=== PATIENT | female | born 1960 | race Caucasian/White ===

== ENCOUNTER 2017-03-18 09:42 | Emergency (ER) | payer BC, MEDICARE ==
[2017-03-18 10:14] VITALS: BP 160/105
--- NOTE | 2017-03-18 11:47 | UC ---
helena Crane Timothy, scribed for Miladys Pagan DO on 03/18/17 at 1028 . Abdominal Pain Female HPI - HPI Summary HPI Summary: Nikki Hartman is a 56 yo female presenting to [facility] with diffuse 8/10 abd pain for the past 4 days with reflux, nausea, dry heaves. She also has Hx of lap band and lap band removal. Pt believes that this may be a recurrence of pancreatitis, which she has Hx of. She denies fever, cough, sore throat, eye discharge, CP, SOB, urinary Sx. Her MHx includes heart murmur, HTN, seizure, sleep apnea, CPAP, GERD, lap band, pancreatitis, fibroids, tubal ligation, hysterectomy, oophorectomy, DM II, chronic anemia, panic disorder, depression, anxiety, tobacco use. - History of Current Complaint Chief Complaint: UCAbdominalPain Stated Complaint: ABDOMINAL PAIN Time Seen by Provider: 03/18/17 10:24 Hx Obtained From: Patient Onset/Duration: Gradual Onset, Lasting Days, Still Present Timing: Constant Severity Initially: Moderate Severity Currently: Moderate Pain Intensity: 8 Pain Scale Used: 0-10 Numeric Location: Diffuse Radiates: No Character: Aching Associated Signs and Symptoms: Positive: Nausea, Vomiting, Other: - reflux. Negative: Fever, Cough, Chest Pain, Urinary Symptoms Allergies/Adverse Reactions: Allergies Allergy/AdvReac Type Severity Reaction Status Date / Time Gemfibrozil [From Lopid] Allergy Severe See Comment Verified 03/18/17 10:14 Latex Allergy RASH AND Verified 03/18/17 10:14 ITCHY FRGRANCES/CLEANING PRODUCTS Allergy Unknown Uncoded 03/18/17 10:14 Reaction Details PMH/Surg Hx/FS Hx/Imm Hx Endocrine History: Diabetes Cardiovascular History: Hypertension GI/ History: Gastroesophageal Reflux, Other Other GI/ History: lap band, pancreatitis Neurological History: Seizures Psychological History: Anxiety, Depression - Surgical History Surgical History: Yes Surgery Procedure, Year, and Place: LAP BAND INSERTION 2004 [facility] [place] REMOVAL 05/09 [facility] [place] LAP DERIC MANY YRS AGO. TUBAL [facility] [place] BILAT CATARACT [facility] [place] BILAT S+O 2013 [facility]. hernia - Family History Known Family History: Positive: Cardiac Disease, Hypertension, Diabetes, Other - CVA - Social History Alcohol Use: None Substance Use Type: None Smoking Status (MU): Former Smoker Type: Cigarettes Amount Used/How Often: 1/2 PPD Length of Time of Smoking/Using Tobacco: 10 YEARS Have You Smoked in the Last Year: Yes When Did the Patient Quit Smoking/Using Tobacco: 02/2014 Household Exposure Type: Cigarettes - Immunization History Most Recent Influenza Vaccination: Most Recent Tetanus Shot: 2010 Most Recent Pneumonia Vaccination: 2013 Review of Systems Constitutional: Negative Skin: Negative Eyes: Negative ENT: Negative Respiratory: Negative Cardiovascular: Negative Gastrointestinal: Abdominal Pain, Vomiting - dry heaves, Nausea Motor: Negative Neurovascular: Negative Musculoskeletal: Negative Neurological: Negative Psychological: Negative All Other Systems Reviewed And Are Negative: Yes Physical Exam Triage Information Reviewed: Yes Appearance: Well-Appearing, Pain Distress - mild-moderate, Obese Vital Signs: Initial Vital Signs Temp 98.3 F 03/18/17 10:05 Pulse 88 03/18/17 10:05 Resp 20 03/18/17 10:05 BP 160/105 03/18/17 10:05 Pulse Ox 99 03/18/17 10:05 Vital Signs Reviewed: Yes Eyes: Positive: Conjunctiva Clear. Negative: Discharge ENT Exam: Normal ENT: Positive: Hearing grossly normal. Negative: Muffled/hoarse voice Neck exam: Normal Neck: Positive: Supple Respiratory: Positive: Lungs clear, Normal breath sounds, No respiratory distress Cardiovascular: Positive: RRR Abdomen Description: Positive: Soft, Other: - ventral hernia. Negative: Nontender - tenderness diffuse.Exquisite tenderness to palpation at epigastric region. Bowel Sounds: Positive: Present Musculoskeletal: Positive: Strength Intact, ROM Intact Neurological: Positive: Alert, Muscle Tone Normal Psychological Exam: Normal Psychological: Positive: Age Appropriate Behavior Skin Exam: Normal Skin: Positive: Other - warm, dry, normal color. Negative: rashes Abd Pain Female Course/Dx - Course Course Of Treatment: Nikki Hartman is a 56 yo female presenting to [facility] with 8/10 diffuse abd pain with N/V concerned for pancreatitis which she has a Hx of. Pt medication list reviewed this visit. Pt BP noted at 160/105. After clinical examination, she will be transferred to [facility] for further evaluation, observation, and treatment. EMS offered for transport which Pt accepts. She will be transferred by ambulance as advised. - Differential Dx/Diagnosis Differential Diagnosis: Constipation, Gall Bladder Disease, Pancreatitis, Peptic Ulcer Disease, Other - gerd Provider Diagnoses: abd pain of unknown etiology, r/o pancreatitis - Physician Notification/Consults Discussed Care of Patient With: Yolanda De Leon - Discussed Pt condition, Pt will be seen in [facility] Time Discussed With Above Provider: 10:33 Discharge - Discharge Plan Condition: Stable Disposition: TRANS HIGHER LVL OF CARE FAC Discharge Disposition Comment: transfer to [facility] Referrals: Naveen Arana MD [Primary Care Provider] - The documentation as recorded by the helena landrum Timothy accurately reflects the service I personally performed and the decisions made by , Miladys Pagan DO.
== END 2017-03-18 11:00 | disposition short-term general hospital (02) ==
LOC: UCEAST 09:42
DX: R10.9 Unspecified abdominal pain (principal); R01.1 Cardiac murmur, unspecified; I10 Essential (primary) hypertension; R56.9 Unspecified convulsions; G47.33 Obstructive sleep apnea (adult) (pediatric); Z99.81 Dependence on supplemental oxygen; K21.9 Gastro-esophageal reflux disease without esophagitis; Z98.84 Bariatric surgery status; E11.9 Type 2 diabetes mellitus without complications; D50.0 Iron deficiency anemia secondary to blood loss (chronic); F41.0 Panic disorder [episodic paroxysmal anxiety]; F32.9 Major depressive disorder, single episode, unspecified; F17.210 Nicotine dependence, cigarettes, uncomplicated; Z91.040 Latex allergy status; Z91.048 Other nonmedicinal substance allergy status
CPT/HCPCS: 99213; G0463

== ENCOUNTER 2017-03-18 11:31 | Emergency (ER) | payer BC, MEDICARE ==
[2017-03-18 12:09] LABS: Hematocrit 36 % (35-47); Hemoglobin 12.2 g/dl (12.0-16.0); Mean Corpuscular HGB Conc 34 g/dl (31-36); Mean Corpuscular Hemoglobin 27 pg (27-31); Mean Corpuscular Volume 82 fL (80-97); Mean Platelet Volume 7 um3 (7.4-10.4); Red Blood Count 4.44 10^6/ul (4.0-5.4); Red Cell Distribution Width 14 % (10.5-15); White Blood Count 7.5 10^3/ul (3.5-10.8)
[2017-03-18 12:25] LABS: Urine Bilirubin Negative (Negative); Urine Glucose Negative (Negative); Urine Nitrite Negative (Negative)
[2017-03-18 12:36] LABS: Albumin 3.9 g/dL (3.2-5.2); BUN/Creatinine Ratio 14.7 (8-20); C Reactive Protein 15.41 mg/L (< 5.00); Calcium 8.9 mg/dL (8.6-10.3); EGFR African American 102.4 (>60); EGFR Non-African American 79.6 (>60); Globulin 2.8 g/dL (2-4); Potassium 3.5 mmol/L (3.5-5.0); Total Bilirubin 0.3 mg/dL (0.2-1.0); Total Protein 6.7 g/dL (6.4-8.9)
[2017-03-18] MEDS ORDERED: Ondansetron INJ* 2 MG/ML VIAL IV ONE (13:00)
[2017-03-18] MEDS ORDERED: Morphine INJ* 10 MG/ML 1 ML SYRINGE IV ONE (13:00)
[2017-03-18] MEDS ORDERED: NS 0.9% 1000 ML* 1,000 ML IV ONE (13:04)
[2017-03-18 13:17] LABS: Venous Bicarbonate HCO3 22.5 mmol/L (24-28)
[2017-03-18] MEDS ORDERED: Iodixanol* (CONTRAST) 320 MG/ML 100 ML SDV IV ONE (14:16)
--- NOTE | 2017-03-18 15:13 | RAD ---
Indication: Left upper quadrant pain, vomiting. Contrast: Administered 130.0 ml of VISAPAQUE 320 mgi/ml CT of the abdomen and pelvis was performed after oral and IV contrast administration. Coronal and sagittal reconstructed images were obtained. The lung bases demonstrate no pleural fluid, nodules or masses. Heart is of normal size without evidence of pericardial effusion. Liver is normal in size. It is diffusely decreased in density consistent with hepatic steatosis. Area of focal fatty sparing is noted in the medial segment of left lobe. The patient status post cholecystectomy. Common duct is prominent likely due to postcholecystectomy state. Pancreas demonstrates no mass or pancreatic duct dilatation. The spleen is normal in size. No adrenal lesions are noted. The kidneys demonstrate symmetric nephrograms without focal lesions. No retroperitoneal lymphadenopathy is noted. No dilated loops of bowel are noted. The urinary bladder is unremarkable. CT of the pelvis demonstrates diverticulosis without definite evidence of diverticulitis. No abnormally dilated loops of bowel are noted. The appendix is visualized and is normal. There is a small periumbilical hernia just above the umbilicus with a defect in the right rectus muscle containing omentum. No free fluid is identified. IMPRESSION: RIGHT-SIDED PERIUMBILICAL HERNIA CONTAINING OMENTUM WITHOUT EVIDENCE OF STRANGULATION OR EDEMA. HEPATIC STEATOSIS IS NOTED. PATIENT IS STATUS POST CHOLECYSTECTOMY.
[2017-03-18 17:29] LABS: BUN/Creatinine Ratio 14.7 (8-20); Blood Urea Nitrogen 10 mg/dL (6-24); CO2 Carbon Dioxide 25 mmol/L (22-32); Calcium 8.6 mg/dL (8.6-10.3); Chloride 89 mmol/L (101-111); EGFR African American 114.7 (>60); EGFR Non-African American 89.2 (>60); Glucose 165 mg/dL (70-100); Sodium 125 mmol/L (133-145)
[2017-03-18 17:32] LABS: Anion Gap 11 mmol/L (2-11)
[2017-03-18 19:33] VITALS: BP 140/70
--- NOTE | 2017-03-19 10:04 | ED ---
Cynthia Crane Auryana, scribed for Polo Ramírez MD on 03/18/17 at 1211 . Abdominal Pain/Male - HPI Summary HPI Summary: 56 year old female presents with abdominal pain starting 4 days ago. The pain is located in the left sided abdomen. Patient reports she also has nausea, and HAYES but denies any fever, chills, diaphoresis, vomiting, diarrhea, melena or any blood in the stool. She reports multiple prior episodes. - 6x. Patient reports that she had a lap band removed and since then has gained weight over the last year. PMHx is significant for lap band surgery, cholecystitis, DM, HTN, and chronic pancreatitis. She denies any pain medications. She denies any alcohol use. - History of Current Complaint Chief Complaint: EDAbdPain Stated Complaint: ABD PAIN Time Seen by Provider: 03/18/17 11:34 Hx Obtained From: Patient Onset/Duration: Gradual Onset, Lasting Days - 4, Still Present Timing: Constant Severity Initially: Mild Severity Currently: Mild Location: Other - left sided abd pain Associated Signs And Symptoms: Positive: Nausea, Other - HAYES Similar Episode/Dx As:: YES SEE HPI - Allergies/Home Medications Allergies/Adverse Reactions: Allergies Allergy/AdvReac Type Severity Reaction Status Date / Time Gemfibrozil [From Lopid] Allergy Severe See Comment Verified 03/18/17 10:14 Latex Allergy RASH AND Verified 03/18/17 10:14 ITCHY FRGRANCES/CLEANING PRODUCTS Allergy Unknown Uncoded 03/18/17 10:14 Reaction Details Home Medications: Home Medications Fluticasone NASAL SPRAY 50MCG* [Flonase NASAL SPRAY 50MCG*] 2 spray BOTH NARES DAILY 03/18/17 [History Confirmed 03/18/17] Furosemide TAB* [Lasix TAB*] 20 mg PO DAILY 03/18/17 [History Confirmed 03/18/17 ] Furosemide TAB* [Lasix TAB*] 40 mg PO DAILY 03/18/17 [History Confirmed 03/18/17 ] Losartan TAB* [Cozaar TAB*] 100 mg PO DAILY 03/18/17 [History Confirmed 03/18/17 ] Metoprolol Tartrate TAB* [Lopressor TAB*] 50 mg PO BID 03/18/17 [History Confirmed 03/18/17] Omeprazole CAP* [Prilosec CAP* 20 MG] 20 mg PO DAILY 03/18/17 [History Confirmed 03/18/17] amLODIPine TAB* [Norvasc 5 mg TAB*] 10 mg PO DAILY 03/18/17 [History Confirmed 03/18/17] PMH/Surg Hx/FS Hx/Imm Hx Endocrine/Hematology History: Reports: Hx Diabetes - TYPE II- DIET CONTROLLED, Hx Anemia - CHRONIC Cardiovascular History: Reports: Hx Hypertension - FAIRLY WELL CONTROLLED Denies: Hx Pacemaker/ICD Respiratory History: Reports: Hx Sleep Apnea - CPAP Denies: Hx Asthma GI History: Reports: Hx Gastroesophageal Reflux Disease History: Denies: Hx Renal Disease Musculoskeletal History: Reports: Hx Bursitis - LEFT SHOULDER Sensory History: Reports: Hx Cataracts - surgery, Hx Contacts or Glasses, Hx Glaucoma Denies: Hx Hearing Aid Opthamlomology History: Reports: Hx Cataracts - surgery, Hx Contacts or Glasses , Hx Glaucoma Neurological History: Reports: Hx Headaches, Hx Seizures - 8 months ago Psychiatric History: Reports: Hx Anxiety, Hx Depression, Hx Panic Disorder - VERY ANXIOUS - Cancer History Hx Chemotherapy: No Hx Radiation Therapy: No - Surgical History Surgery Procedure, Year, and Place: [place] [facility] [place] [facility] [place] DERIC MANY YRS AGO. [place] [facility] [place]IL[place] [facility] [place] BILAT S+O 2013 [place]. hernia Hx Anesthesia Reactions: No Infectious Disease History: Denies: Traveled Outside the [place] in Last 30 Days - Family History Known Family History: Positive: Other - CVA - Social History Alcohol Use: None Hx Substance Use: No Substance Use Type: Reports: None Hx Tobacco Use: Yes Smoking Status (MU): Former Smoker Type: Cigarettes Amount Used/How Often: 1/2 PPD Length of Time of Smoking/Using Tobacco: 10 YEARS Have You Smoked in the Last Year: Yes Review of Systems Constitutional: Negative Negative: Fever, Chills Eyes: Negative Negative: Erythema ENT: Negative Negative: Sore Throat Cardiovascular: Negative Negative: Chest Pain Respiratory: Negative Negative: Shortness Of Breath, Cough Positive: Abdominal Pain, Nausea. Negative: Vomiting Genitourinary: Negative Negative: dysuria, hematuria Musculoskeletal: Negative Negative: Myalgia, Edema Skin: Negative Negative: Rash Neurological: Other - no dizziness Positive: Headache Psychological: Normal All Other Systems Reviewed And Are Negative: Yes Physical Exam - Summary Physical Exam Summary: Constitutional: Well-developed, Well-nourished, Alert. (-) Distressed Skin: Warm, Dry HENT: Normocephalic; Atraumatic Eyes: Conjunctiva normal Neck: Musculoskeletal ROM normal neck. (-) JVD, (-) Stridor, (-) Tracheal deviation Cardio: Rhythm regular, rate normal, Heart sounds normal; Intact distal pulses; The pedal pulses are 2+ and symmetric. Radial pulses are 2+ and symmetric. (-) Murmur Pulmonary/Chest wall: Effort normal. (-) Respiratory distress, (-) Wheezes, (-) Rales Abd: Soft, (+) LUQ and epigastric tenderness, (-) Distension, (-) Guarding, (-) Rebound Musculoskeletal: (-) Edema Lymph: (-) Cervical adenopathy Neuro: Alert, Oriented x3 Psych: Mood and affect Normal Triage Information Reviewed: Yes Vital Signs Reviewed: Yes Diagnostics - Laboratory Result Diagrams: 03/18/17 11:43 03/18/17 18:15 Lab Statement: Any lab studies that have been ordered have been reviewed, and results considered in the medical decision making process. - CT ABD/PEL CT Interpretation: Positive (See Comments) - IMPRESSION: RIGHT-SIDED PERIUMBILICAL HERNIA CONTAINING OMENTUM WITHOUT EVIDENCE OF STRANGULATION OR EDEMA. HEPATIC STEATOSIS IS NOTED. PATIENT IS STATUS POST CHOLECYSTECTOMY. CT Interpretation Completed By: Radiologist - EKG 12:10 EKG Interpretation: SINUS RHYTHM @ 86 BPM, no STEMI. Re-Evaluation - Re-Evaluation First Eval Re-Evaluation Time: 19:22 - patient feels better and wishes to go home Change: Improved Abdominal Pain Fem Course/Dx - Course Assessment/Plan: 56 year old female presents with abdominal pain starting 4 days ago. The pain is located in the left sided abdomen. Patient reports she also has nausea, and HAYES but denies any fever, chills, diaphoresis, vomiting, diarrhea, melena or any blood in the stool. She reports multiple prior episodes. - 6x. Patient reports that she had a lap band removed and since then has gained weight over the last year. PMHx is significant for lap band surgery, cholecystitis, DM, HTN, and chronic pancreatitis. She denies any pain medications. She denies any alcohol use. Test results show sodium #1 123, sodium #2 125, chloride 87, anion gap #1 12, anion gap #2 11, glucose #1 216, glucose #2 165, lactic acid #1 4.2, lactic acid #2 2.9 , Alk. Phos. 114, troponin 0.00, CRP 15.41, and lipase 27. Blood gas shows pCO2 37, pO2 23, HCO3 22.5, O2 SAT 42.8, and base excess -1.6. UA is negative for U.T.I. CT ABD / PEL IMPRESSION: RIGHT-SIDED PERIUMBILICAL HERNIA CONTAINING OMENTUM WITHOUT EVIDENCE OF. STRANGULATION OR EDEMA. HEPATIC STEATOSIS IS NOTED. PATIENT IS STATUS POST CHOLECYSTECTOMY. Ekg- SINUS RHYTHM @ 86 BPM, no STEMI. I discussed the case with Dr. Romeo because her sodium levels have improved and should have trial with decreased H2O intake. Patient discharge home with F/U to PCP and recommendation to decrease fluid intake to 4x 8 oz. glasses of water a day. Patient is agreeable with plan. DDx: pancreatitis related to DM, Hyponatremia related to polydipsia v.s. diuretics. Dx: polydipsia, and hyponatremia. - Diagnoses Differential Diagnosis/HQI/PQRI: Other - pancreatitis related to DM, Hyponatremia related to polydipsia v.s. diuretics Provider Diagnoses: Polydipsia, Hyponatremia - Provider Notifications Discussed Care Of Patient With: Hollis Lyman Time Discussed With Above Provider: 17:00 - recommends repeat BMP, and lactic acid Discharge - Discharge Plan Condition: Stable Disposition: HOME Patient Education Materials: Hyponatremia (ED) Referrals: Naveen Arana MD [Primary Care Provider] - 2 Days Additional Instructions: Decrease fluid intake to 4x 8 oz. glasses of water a day RETURN TO THE EMERGENCY DEPARTMENT FOR CHANGING OR WORSENING SYMPTOMS The documentation as recorded by the Cynthia landrum Auryana accurately reflects the service I personally performed and the decisions made by , Polo Ramírez MD.
== END 2017-03-18 19:33 | disposition home or self-care (01) ==
LOC: ED 11:31
DX: R63.1 Polydipsia (principal); E87.1 Hypo-osmolality and hyponatremia; R51 Headache
CPT/HCPCS: 36415; 74177; 80048; 80053; 81003; 82803; 83605; 83690; 84484; 85025; 86140; 93005; 96374; 96375; 99285; J2270; J2405; Q9967

== ENCOUNTER 2017-06-17 02:53 | Observation (INO) | payer BC, MEDICARE ==
[2017-06-17] MEDS ORDERED: Aspirin Low Dose CHEW TAB* 81 MG PO ONE (02:59)
[2017-06-17] MEDS ORDERED: Nitroglycerin 2% OINT* 1 GM PAK TOPICAL ONE (02:59)
[2017-06-17 03:26] LABS: Add Diff/Slide Review? Slide Review Added; Comments Flag Yes; Hematocrit 37 % (35-47); Hemoglobin 12.3 g/dl (12.0-16.0); Mean Corpuscular HGB Conc 33 g/dl (31-36); Mean Corpuscular Hemoglobin 27 pg (27-31); Mean Corpuscular Volume 81 fL (80-97); Mean Platelet Volume 7 um3 (7.4-10.4); Red Blood Count 4.51 10^6/ul (4.0-5.4); Red Cell Distribution Width 15 % (10.5-15); White Blood Count 7.4 10^3/ul (3.5-10.8)
[2017-06-17 03:41] LABS: Albumin 4.1 g/dL (3.2-5.2); BUN/Creatinine Ratio 14.3 (8-20); Calcium 9.4 mg/dL (8.6-10.3); EGFR African American 89.9 (>60); EGFR Non-African American 69.9 (>60); Globulin 2.8 g/dL (2-4); Potassium 3.7 mmol/L (3.5-5.0); Total Bilirubin 0.3 mg/dL (0.2-1.0); Total Protein 6.9 g/dL (6.4-8.9)
[2017-06-17 03:44] LABS: Troponin I 0.07 ng/mL (<0.04)
[2017-06-17] MEDS ORDERED: Heparin DRIP 25,000 UNITS(*) 25,000 UNITS/500 ML BAG IV ONE (03:54)
[2017-06-17] MEDS ORDERED: Heparin VIAL(*) 5000 UNITS/ML VIAL (FIVE THOUSAND) IV SCH (04:00)
[2017-06-17] MEDS ORDERED: Heparin DRIP 25,000 UNITS(*) 25,000 UNITS/500 ML BAG IVPB SCH (04:00)
[2017-06-17] MEDS ORDERED: Al Hydrox/Mg Hydrox/Simet LIQ* 30 ML UDC PO PRN (04:03)
[2017-06-17] MEDS ORDERED: Ondansetron INJ* 2 MG/ML VIAL IV PRN (04:03)
[2017-06-17] MEDS ORDERED: Acetaminophen TAB* 325 MG PO PRN (04:03)
[2017-06-17] MEDS ORDERED: Heparin VIAL(*) 5000 UNITS/ML VIAL (FIVE THOUSAND) ONE (04:07)
[2017-06-17] MEDS ORDERED: Albuterol HFA INHALER* 8 gm MDI INH PRN (05:15)
--- NOTE | 2017-06-17 06:35 | ED ---
Megan Crane Rebecca, scribed for Vitor Christianuel on 06/17/17 at 0315 . HPI Chest Pain - HPI Summary HPI Summary: Pt is a 56 y/o F BIBA who presents to ED c/o CP. Pain began 1 week ago and has been intermittent since onset, present at night. 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 Pain is midsternal with radiation into the jaw and LUE. Pain is currently mild, ranked 2/10 and characterized as soreness. Given 324 mg ASA while en route to [facility] ED. Sx aggravated by nothing, alleviated by sitting up, unchanged by deep breaths and movements. C/o nausea and dizziness. FHx CAD. Body Worker is Dr. Mcleod who last did a stress test about 2-3 months ago. - History of Current Complaint Chief Complaint: EDChestPainROMI Time Seen by Provider: 06/17/17 02:54 Hx Obtained From: Patient Onset/Duration: Started Weeks Ago - 1 week, Still Present Timing: Intermittent Current Severity: Mild Pain Intensity: 2 Pain Scale Used: 0-10 Numeric Chest Pain Location: Mid Sternal Chest Pain Radiates: Yes Chest Pain Radiates To:: Arm - LUE, Jaw Character: Other: - Soreness Aggravating Factor(s): Nothing Alleviating Factor(s): Other: - Sitting up Associated Signs and Symptoms: Positive: Dizziness, Nausea - Additional Pertinent History Primary Care Physician: [id number] - Allergy/Home Medications Allergies/Adverse Reactions: Allergies Allergy/AdvReac Type Severity Reaction Status Date / Time Gemfibrozil [From Lopid] Allergy Severe See Comment Verified 03/18/17 10:14 Latex Allergy RASH AND Verified 03/18/17 10:14 ITCHY FRGRANCES/CLEANING PRODUCTS Allergy Unknown Uncoded 03/18/17 10:14 Reaction Details PMH/Surg Hx/FS Hx/Imm Hx Endocrine/Hematology History: Reports: Hx Diabetes - TYPE II- DIET CONTROLLED, Hx Anemia - CHRONIC Cardiovascular History: Reports: Hx Hypertension - FAIRLY WELL CONTROLLED Denies: Hx Pacemaker/ICD Respiratory History: Reports: Hx Sleep Apnea - CPAP Denies: Hx Asthma GI History: Reports: Hx Gastroesophageal Reflux Disease History: Denies: Hx Renal Disease Musculoskeletal History: Reports: Hx Bursitis - LEFT SHOULDER Sensory History: Reports: Hx Cataracts - surgery, Hx Contacts or Glasses, Hx Glaucoma Denies: Hx Hearing Aid Opthamlomology History: Reports: Hx Cataracts - surgery, Hx Contacts or Glasses , Hx Glaucoma Neurological History: Reports: Hx Headaches, Hx Seizures - 8 months ago Psychiatric History: Reports: Hx Anxiety, Hx Depression, Hx Panic Disorder - VERY ANXIOUS - Cancer History Hx Chemotherapy: No Hx Radiation Therapy: No - Surgical History Surgery Procedure, Year, and Place: LAP BAND INSERTION 2004 [facility]. BAND REMOVAL 05/09 [facility]. LAP DERIC MANY YRS AGO. TUBAL [facility]. BILAT CATARACT [facility]. BILAT S+O 2013 [facility]. hernia Hx Anesthesia Reactions: No Infectious Disease History: No Infectious Disease History: Denies: Traveled Outside the [place] in Last 30 Days - Family History Known Family History: Positive: Cardiac Disease, Hypertension, Diabetes, Other - CVA - Social History Alcohol Use: Occasionally Hx Substance Use: No Substance Use Type: Reports: None Hx Tobacco Use: Yes Smoking Status (MU): Former Smoker Type: Cigarettes Amount Used/How Often: 1/2 PPD Length of Time of Smoking/Using Tobacco: 10 YEARS Have You Smoked in the Last Year: Yes Review of Systems Positive: Chest Pain Positive: Nausea Neurological: Other - Dizziness All Other Systems Reviewed And Are Negative: Yes Physical Exam - Summary Physical Exam Summary: Appearance: Well appearing, no pain distress Skin: warm, dry, reflects adequate perfusion Head/face: normal Eyes: EOMI, ZACH ENT: normal Neck: supple, nontender Respiratory: CTA, breath sounds present Cardiovascular: tachycardic, pulses symmetrical Abdomen: nontender, soft Bowel: present Musculoskeletal: normal, strength/ROM intact Neuro: normal, sensory motor intact, A&Ox3 Triage Information Reviewed: Yes Vital Signs On Initial Exam: Initial Vitals Temp Pulse Resp BP Pulse Ox 98.1 F 103 20 162/87 98 06/17/17 02:55 06/17/17 02:55 06/17/17 02:55 06/17/17 02:55 06/17/17 02:55 Vital Signs Reviewed: Yes - [place] Coma Scale Coma Scale Total: 15 Diagnostics - Vital Signs Vital Signs Temp Pulse Resp BP Pulse Ox 06/17/17 02:55 98.1 F 103 20 162/87 98 - Laboratory Lab Results: Lab Results 06/17/17 06/17/17 06/17/17 Range/Units 03:15 03:15 03:15 WBC 7.4 (3.5-10.8) 10^3/ul RBC 4.51 (4.0-5.4) 10^6/ul Hgb 12.3 (12.0-16.0) g/dl Hct 37 (35-47) % MCV 81 (80-97) fL MCH 27 (27-31) pg MCHC 33 (31-36) g/dl RDW 15 (10.5-15) % Plt Count 360 (150-450) 10^3/ul MPV 7 L (7.4-10.4) um3 Neut % (Auto) 51.8 (38-83) % Lymph % (Auto) 35.1 (25-47) % Garrett % (Auto) 8.9 (1-9) % Eos % (Auto) 3.5 (0-6) % Baso % (Auto) 0.7 (0-2) % Absolute Neuts (auto) 3.8 (1.5-7.7) 10^3/ul Absolute Lymphs (auto) 2.6 (1.0-4.8) 10^3/ul Absolute Monos (auto) 0.7 (0-0.8) 10^3/ul Absolute Eos (auto) 0.3 (0-0.6) 10^3/ul Absolute Basos (auto) 0 (0-0.2) 10^3/ul Absolute Nucleated RBC 0.01 10^3/ul Nucleated RBC % 0.1 INR (Anticoag Therapy) 0.85 L (0.89-1.11) APTT 28.4 (26.0-36.3) seconds D-Dimer, Quantitative < 200 (Less Than 230) ng/mL Sodium (133-145) mmol/L Potassium (3.5-5.0) mmol/L Chloride (101-111) mmol/L Carbon Dioxide (22-32) mmol/L Anion Gap (2-11) mmol/L BUN (6-24) mg/dL Creatinine (0.51-0.95) mg/dL Est GFR ( Amer) (>60) Est GFR (Non-Af Amer) (>60) BUN/Creatinine Ratio (8-20) Glucose (70-100) mg/dL Lactic Acid (0.5-2.0) mmol/L Calcium (8.6-10.3) mg/dL Total Bilirubin (0.2-1.0) mg/dL AST (13-39) U/L ALT (7-52) U/L Alkaline Phosphatase (34-104) U/L Troponin I (<0.04) ng/mL B-Natriuretic Peptide 23 ( - 100) pg/mL Total Protein (6.4-8.9) g/dL Albumin (3.2-5.2) g/dL Globulin (2-4) g/dL Albumin/Globulin Ratio (1-3) 06/17/17 06/17/17 Range/Units 03:15 03:15 WBC (3.5-10.8) 10^3/ul RBC (4.0-5.4) 10^6/ul Hgb (12.0-16.0) g/dl Hct (35-47) % MCV (80-97) fL MCH (27-31) pg MCHC (31-36) g/dl RDW (10.5-15) % Plt Count (150-450) 10^3/ul MPV (7.4-10.4) um3 Neut % (Auto) (38-83) % Lymph % (Auto) (25-47) % Garrett % (Auto) (1-9) % Eos % (Auto) (0-6) % Baso % (Auto) (0-2) % Absolute Neuts (auto) (1.5-7.7) 10^3/ul Absolute Lymphs (auto) (1.0-4.8) 10^3/ul Absolute Monos (auto) (0-0.8) 10^3/ul Absolute Eos (auto) (0-0.6) 10^3/ul Absolute Basos (auto) (0-0.2) 10^3/ul Absolute Nucleated RBC 10^3/ul Nucleated RBC % INR (Anticoag Therapy) (0.89-1.11) APTT (26.0-36.3) seconds D-Dimer, Quantitative (Less Than 230) ng/mL Sodium 129 L (133-145) mmol/L Potassium 3.7 (3.5-5.0) mmol/L Chloride 92 L (101-111) mmol/L Carbon Dioxide 23 (22-32) mmol/L Anion Gap 14 H (2-11) mmol/L BUN 12 (6-24) mg/dL Creatinine 0.84 (0.51-0.95) mg/dL Est GFR ( Amer) 89.9 (>60) Est GFR (Non-Af Amer) 69.9 (>60) BUN/Creatinine Ratio 14.3 (8-20) Glucose 246 H (70-100) mg/dL Lactic Acid 4.2 H* (0.5-2.0) mmol/L Calcium 9.4 (8.6-10.3) mg/dL Total Bilirubin 0.30 (0.2-1.0) mg/dL AST 34 (13-39) U/L ALT 36 (7-52) U/L Alkaline Phosphatase 93 (34-104) U/L Troponin I 0.07 H* (<0.04) ng/mL B-Natriuretic Peptide ( - 100) pg/mL Total Protein 6.9 (6.4-8.9) g/dL Albumin 4.1 (3.2-5.2) g/dL Globulin 2.8 (2-4) g/dL Albumin/Globulin Ratio 1.5 (1-3) Result Diagrams: 06/17/17 03:15 06/17/17 03:15 Lab Statement: Any lab studies that have been ordered have been reviewed, and results considered in the medical decision making process. - Radiology CXR Xray Interpretation: No Acute Changes Radiology Interpretation Completed By: ED Physician - EKG 0304 Cardiac Rate: Tachycardia - 102 bpm EKG Rhythm: Sinus Tachycardia EKG Interpretation: No acute changes Re-Evaluation - Re-Evaluation First Eval Re-Evaluation Time: 03:59 Comment: Agreed with admission. Discussed results with the pt. Chest Pain Course/Dx - Course Assessment/Plan: Pt is a 56 y/o F BIBA who presents to ED c/o CP. Pain began 1 week ago and has been intermittent since onset, present at night. 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 Pain is midsternal with radiation into the jaw and LUE. Pain is currently mild, ranked 2/10 and characterized as soreness. Sx alleviated by sitting up, unchanged by deep breaths and movements. C/o nausea and dizziness. FHx CAD. Body Worker is Dr. Mcleod who last did a stress test about 2-3 months ago. CXR reveals no acute findings. EKG is sinus tachycardia with no acute changes. Lactic acid of 4.2, troponin of 0.07. Discussed care of pt with Dr. Beltrán who accepts pt for admission. Pt will be admitted with Dx of CP r/o OK and hyponatremia. She understands and agrees. Allergies noted. Elevated BP noted. - Chest Pain Differential Diagnosis/HQI/PQRI: Acute OK, ACS, CHF, Chest Wall, Lower Respiratory Infection, Pulmonary Edema - Diagnoses Provider Diagnoses: Chest pain, rule out acute myocardial infarction, Hyponatremia, ACS (acute coronary syndrome) - Provider Notifications Discussed Care Of Patient With: Jeremie Beltrán Time Discussed With Above Provider: 03:49 Instructed by Provider To: Other - Accepts pt for admission. Discharge - Discharge Plan Condition: Stable Disposition: ADMITTED TO [facility] The documentation as recorded by the Megan landrum Rebecca accurately reflects the service I personally performed and the decisions made by , José Christian.
--- NOTE | 2017-06-17 08:03 | RAD ---
INDICATION: Chest pain COMPARISON: Most recent comparison chest x-ray August 23, 2016 TECHNIQUE: Single AP portable view of the chest was obtained. FINDINGS: Image quality is compromised due to the relative inferiority of a portable chest x-ray. The heart and mediastinum exhibit normal size and contour. The lungs are grossly clear. There is no evidence of a large pleural effusion. Visualized bones are normal for the patient's age. IMPRESSION: No radiographic evidence for acute cardiopulmonary abnormality on this portable chest x-ray.
[2017-06-17] MEDS: Morphine INJ* 2 MG/ML 1 ML SYRINGE (TWO MG - NEW SYRINGE VERSION) IV PRN (08:58)
[2017-06-17] MEDS ORDERED: Furosemide TAB* 40 MG PO SCH (09:00)
[2017-06-17 09:01] LABS: C Reactive Protein 11.32 mg/L (< 5.00)
[2017-06-17] MEDS ORDERED: Dextrose 50% Syringe 50 ML* 25 GM/50 ML SYRINGE IV PUSH PRN (09:20)
[2017-06-17] MEDS ORDERED: NS 0.9% 1000 ML* 1,000 ML IV SCH ×2 (09:30→23:30)
[2017-06-17] MEDS: Metoprolol Tartrate TAB* 50 mg PO SCH ×2 (10:00→23:15)
[2017-06-17] MEDS: Losartan TAB* 25 MG PO SCH (10:01)
[2017-06-17] MEDS: clonazePAM TAB(*) 1 MG PO SCH ×2 (10:01→23:14)
[2017-06-17] MEDS: Aspirin EC Low Dose* 81 MG TAB.EC PO SCH (10:03)
[2017-06-17] MEDS: BuPROPion XL* 300 MG TAB.XL PO SCH (10:03)
[2017-06-17] MEDS: amLODIPine TAB* 5 MG PO SCH (10:03)
[2017-06-17] MEDS: Ezetimibe TAB* 10 MG PO SCH (10:03)
[2017-06-17] MEDS: buPROPion SR TAB.SR* 100 MG PO SCH (10:03)
[2017-06-17] MEDS: Omeprazole CAP* 20 MG PO SCH (10:04)
[2017-06-17] MEDS: Fluticasone NASAL SPRAY 50MCG* 16 gm SPRAY BTL BOTH NARES SCH (10:08)
[2017-06-17] MEDS: Nitroglycerin 2% OINT* 1 GM PAK TOPICAL SCH ×3 (10:10→18:21)
[2017-06-17 10:25] LABS: Erythrocyte Sed Rate 17 mm/Hr (0-30)
--- NOTE | 2017-06-17 11:51 | ECHO ---
Patient: MARIFER MACK [facility] Rec#: [id number] : 1960 Date: 06/17/2017 Age: 56y Height: 157.48 cm / 62.0 in Weight: 96.62 kg / 213.0 lbs Sex: F BSA: 1.96 Room#: [facility] Admit Date#: 06/17/2017 Type: Inpatient Referring: Jeremie Beltrán MD Reading: Kenn Mcleod MD Grain Combiner: Irma Moncada KATELIN CC: Naveen Arana MD Transthoracic Echocardiogram Indication: CP BP: 176/92 HR: 106 Rhythm: Tachycardia Findings History: CAD,HTN,AGNES with CPAP,GERD,anxiety-depression,former smoker. Technical Comments: The study is technically limited due to patient body habitus. The study is technically limited due to the patient's smoking history. 3ml Definity used to enhance borders. Left Ventricle: The left ventricular chamber size is decreased. Mild concentric left ventricular hypertrophy is observed. Global left ventricular wall motion and contractility are within normal limits. There is normal left ventricular systolic function. The estimated ejection fraction is 55-60%. Abnormal left ventricular diastolic function is observed. Left Atrium: The left atrial chamber size is normal. Right Ventricle: The right ventricular cavity size is normal. The right ventricular global systolic function is normal. Right Atrium: The right atrial cavity size is normal. Aortic Valve: The aortic valve leaflets are mildly thickened. Systolic excursion of the aortic valve cusps is reduced. There is no evidence of aortic regurgitation. There is mild aortic stenosis. The mean gradient of the aortic valve is 14.67 mmHg. Max velocity 2.9 m/sec The highest aortic valve velocity was obtained with the standard probe from the A5C view. Mitral Valve: The mitral valve leaflets appear normal. There is mild mitral regurgitation. There is no evidence of mitral stenosis. Tricuspid Valve: The tricuspid valve leaflets are normal. There is no evidence of tricuspid valve regurgitation. Unable to estimate the right ventricular systolic pressure. There is no tricuspid stenosis. Pulmonic Valve: The pulmonic valve appears normal. There is no evidence of pulmonic regurgitation. There is no pulmonic stenosis. Pericardium: A pericardial fat pad is visualized. Aorta: There is no dilatation of the ascending aorta. There is no dilatation of the aortic arch. There is no dilation of the aortic root. Pulmonary Artery: The main pulmonary artery appears normal. Venous: The venous system is not well visualized. Contrast: Definity was used to optimize study. Intravenous contrast was used to enhance endocardial border definition. A total of 3ml used. Summary: There are no significant changes when compared to the previous study done on 02/12/16 Conclusions Mild concentric left ventricular hypertrophy is observed. Global left ventricular wall motion and contractility are within normal limits. There is normal left ventricular systolic function. The estimated ejection fraction is 55-60%. The right ventricular global systolic function is normal. Systolic excursion of the aortic valve cusps is reduced. There is mild aortic stenosis. The mean gradient of the aortic valve is 14.67 mmHg. Max velocity 2.9 m/sec There is mild mitral regurgitation. There is no evidence of tricuspid valve regurgitation. Unable to estimate the right ventricular systolic pressure. Measurements Name Value Normal Range RVIDd (AP) 2D 2.5 cm (0.9 - 2.6) RVDdMajor (2D) 3.2 cm (2.2 - 4.4) RAd ISD 4CH 5 cm (3.4 - 4.9) RA (A4C)W 3 cm (2.9 - 4.6) IVSd (2D) 1.2 cm (0.6 - 1) LVPWd (2D) 1.3 cm (0.6 - 1) LVIDd (2D) 2.9 cm (3.6 - 5.4) LVIDs (2D) 2.5 cm - LV FS (2D) 27 % (25 - 45) Aortic Annulus 1.7 cm (1.4 - 2.6) Ao root diameter (2D) 2.4 cm (2.1 - 3.5) Ascending Ao 2.9 cm (2.1 - 3.4) Aortic arch 2.1 cm (1.8 - 3.4) Descending Ao 1.2 cm - LA dimension (AP) 2D 3.5 cm (2.3 - 3.8) LAd ISD 4CH 5.5 cm (2.9 - 5.3) LA ISD 4CH W 3.6 cm (2.5 - 4.5) Name Value Normal Range LA ESV SP 4CH (A/L) 40 ml - LA ESV SP 2CH (A/L) 38 ml - LA ESV BP (A/L) 41 ml - LA ESV BP (A/L) index 20.83 ml/m2 - LA ESV SP 4CH (MOD) 37 ml - LA ESV SP 2CH (MOD) 36 ml - Name Value Normal Range MV E-wave Vmax 0.7 m/sec - MV deceleration time 108 msec - MV A-wave Vmax 1.2 m/sec - MV E:A ratio 0.56 ratio - LV septal e' Vmax 0.12 m/sec - LV lateral e' Vmax 0.07 m/sec - LV E:e' septal ratio 5.83 ratio - LV E:e' lateral ratio 10 ratio - Name Value Normal Range AV Vmax 2.9 m/sec - AV VTI 45.5 cm - AV peak gradient 34.29 mmHg - AV mean gradient 14.67 mmHg - LVOT diameter 1.8 cm - LVOT Vmax 1.4 m/sec - LVOT VTI 28.2 cm - LVOT peak gradient 7.42 mmHg - LVOT mean gradient 4.26 mmHg - NELA (continuity Vmax) 1.2 cm2 - NELA (continuity VTI) 1.6 cm2 - Name Value Normal Range PV Vmax 1.1 m/sec - PV peak gradient 4.94 mmHg -
[2017-06-17] MEDS: Insulin LISPRO* 1 UNITS UNIT SUBCUT SCH ×2 (11:52→17:55)
--- NOTE | 2017-06-17 12:33 | HP ---
CC: Dr. Naveen Arana. HISTORY AND PHYSICAL: DATE OF ADMISSION: 06/17/17. TIME OF EVALUATION: 5 a.m. PRIMARY CARE PROVIDER: Dr. Naveen Arana. CHIEF COMPLAINT: Ongoing chest pain and shortness of breath. HISTORY OF PRESENT ILLNESS: Ms. Hartman is a pleasant 56-year-old female, brought in by ambulance, complaining of chest pain that has been ongoing for 1 week. It is intermittent and present mainly at night. The patient's symptoms have become more constant. She states the discomfort is midsternal with radiation into her extremities bilaterally as well as into her jaw bilaterally. The pain is often mild but then becomes more intense. She states that she has a sore throat. The patient has been given aspirin en route to the emergency room. Subsequently, the patient has been started on heparin. The patient's initial troponin was 0.07 (indeterminate). By report, Ms. Hartman Lj had a low risk/normal stress test in March 2017 in the outpatient setting by Dr. Kenn Mcleod. The patient was never diagnosed personally with coronary disease though she has hypertension and diabetes. She has obstructive sleep apnea and uses a CPAP nightly. The past night, she has had a difficult time tolerating it secondary to upper sinus congestion. PAST MEDICAL HISTORY: 1. Diabetes - recently started on metformin. 2. Recent weight gain, currently almost 250 pounds. 3. Hypertension. 4. Obstructive sleep apnea - on CPAP. 5. History of mechanical fall on ice with head trauma and subdural hematoma. 6. GERD - on PPI. 7. History of left shoulder bursitis. 8. Cataract surgery. 9. Glaucoma. 10. Anxiety/depression/panic disorder. PAST SURGICAL HISTORY: Includes: 1. Lap band insertion in 2004 with removal in 2013. 2. Laparoscopic cholecystectomy. 3. Tubal ligation. 4. Bilateral cataracts. 5. Bilateral salpingo-oophorectomy 2013. 6. Hernia surgery. FAMILY HISTORY: Cardiac disease, hypertension, diabetes and stroke. 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 She is currently on disability. She is a former smoker, currently not smoking. She used to smoke half a pack a day. She did this for approximately 10 years and quit in the past year. REVIEW OF SYSTEMS: Review of 14 systems was accomplished at the bedside. This was largely negative except for many pertinent positives as mentioned above in the HPI and past medical history. PHYSICAL EXAMINATION ON ADMISSION: GENERAL APPEARANCE: Anxious appearing, middle aged woman who appears her stated age, no apparent distress at this time although she does appear anxious. VITAL SIGNS: Temperature 97.4 degrees Fahrenheit, heart rate 104 to 116 and consistently in that range. Normal sinus rhythm. Blood pressure 140s to 170s/ 60s to 80s variably, oxygen saturation 99% on room air. HEENT: Oropharynx is clear. Mucous membranes are moist. No posterior pharyngeal erythema or exudate. NECK: Obese. Land verdin are obscured. I do not appreciate any bruits or lymphadenopathy. I could not appreciate thyroid secondary to habitus. CHEST: Clear breath sounds anteriorly and posteriorly. No wheezing appreciated. HEART: Regular rate and rhythm appreciated. Her anterior sternum is quite tender at the right costochondral intersection of her sternum and ribs. She does not have any pain on deep inspiration. ABDOMEN: Soft, nontender. Bowel sounds are present. No flank tenderness. EXTREMITIES: Without clubbing, cyanosis or significant edema, though she does have 1+ edema bilaterally. No Homans' sign. NEURO: Nonfocal exam with normal sensory, motor and reflex components. PSYCH: Normal affect. No acute anxiety or depression, although she does seem worried about her symptoms as she reviews them. ADMISSION DATA: White blood cell count 7.4 with a normal differential, hemoglobin 12.3, platelets 360. INR 0.85 (marginally low). D-dimer negative. Blood chemistries with multiple abnormalities including a sodium of 129 ( chronically hyponatremic with previous values in the low 120 on presentation in February). Anion gap is 14 with a low chloride of 92 and BUN and creatinine of 12 and 0.84 respectively. Glucose elevated to 246. Her lactic acid initially was 4.2. Initial troponin at 0315 hours is 0.07. BNP 23. Albumin 4.1, total protein 6.9. Initial Radiology includes a chest x-ray that showed no active disease in the pulmonary parenchyma or any other evidence of intrathoracic disease. EKG, normal sinus rhythm. No evidence of active ischemia. IMPRESSION: Ms. Hartman is a 56-year-old female with obesity, hypertension, diabetes, who presents with ongoing chest pain that is becoming more concerning. Reassuring data includes a stress test in March that was rated low risk, although I do not have access to that test directly as it was done in the outpatient setting. Moreover, the patient has reproducible anterior sternal pain that would be more consistent with costochondritis or possibly pericarditis. PLAN BY MEDICAL PROBLEM: Reproducible anterior chest pain with recumbent position, worse at night/lying flat. - I will start with a transthoracic echocardiogram and see if there is any pleural effusion. - The patient denies any history of trauma to her anterior chest nor any history of heavy lifting to imply a muscle sprain. - The pain is localized over the right aspect of her sternum. I think this is the etiology of her pain and I think she is having further more anxiety with that. She does have a history of GERD. There is potentially a component of that given her symptoms in the recumbent position. The patient will have repeat troponin as the initial one was 0.07 (indeterminate) although that might be artifactual or even a lab error. Of some concern is the fact that the patient does have obstructive sleep apnea. She has gained significant weight. She has got fairly obese neck and I could imagine perhaps a right-sided chest pressure at night leading to a troponin leak of some sort. - Her BNP, reassuringly, is only 23. I am going to repeat her troponin and EKG at a 4-hour interval - between 6 and 7 a.m. on 06/17/2017. - We discussed the possibility that uncontrolled asthma could lead to chest discomfort, but she is not experiencing any wheezing and she has got good air movement on physical exam, so that is much less likely Continue other outpatient medications. She is on 2 meds for her blood pressure including losartan and metoprolol and these will be continued in the inpatient setting. She is on furosemide and that will also be continued. I also noted she is on amlodipine for a total of 3 medications for her hypertension. Patient is a full code and will continue in that status. Cardiac diet: As patient tolerates - hold caffeine for possible cardiac testing if necessary. TIME SPENT: Total time taken to admit Ms. Hartman was 75 minutes, greater than half the time was spent going over the history and physical examination, formulating the differential diagnosis as stated above. [id number]/[facility] #: [id number] [facility]ITALRod
[2017-06-17] MEDS ORDERED: diPHENhydraMINE PO* 25 MG PO ONE (15:16)
[2017-06-17] MEDS ORDERED: Diazepam TAB(*) 5 MG PO ONE (15:16)
[2017-06-17] MEDS ORDERED: Enoxaparin(*) 100 MG/ML SYR SUBCUT ONE (15:36)
--- NOTE | 2017-06-17 15:56 | PN ---
Subjective Date of Service: 06/17/17 Interval History: pt c/o CP-squeezing in the chest radiating to left arm and jaw, better to resolving when sitting up, much worse when laying down. Not pleuritic Objective Active Medications: Acetaminophen (Tylenol Tab*) 650 mg PO Q4H PRN PRN Reason: FEVER/PAIN Al Hydrox/Mg Hydrox/Simethicone (Maalox Plus*) 30 ml PO Q6H PRN PRN Reason: INDIGESTION Albuterol (Ventolin Hfa Inhaler*) 1 - 2 puff INH Q4H PRN PRN Reason: WHEEZING Amlodipine Besylate (Norvasc Tab*) 5 mg PO DAILY [facility] Last Admin: 06/17/17 10:03 Dose: Not Given Aspirin (Aspirin Ec Low Dose*) 81 mg PO DAILY [facility] Last Admin: 06/17/17 10:03 Dose: Not Given Bupropion HCl (Wellbutrin Sr Tab*) 100 mg PO DAILY [facility] Last Admin: 06/17/17 10:03 Dose: Not Given Bupropion HCl (Bupropion Xl*) 300 mg PO DAILY [facility] Last Admin: 06/17/17 10:03 Dose: Not Given Cetirizine HCl (Zyrtec*) 10 mg PO QPM [facility] Clonazepam (Klonopin Tab(*)) 1 mg PO BID [facility] Last Admin: 06/17/17 10:01 Dose: Not Given Dextrose (D50w Syringe 50 Ml*) 12.5 gm IV PUSH .FOR FS < 60 - SS PRN PRN Reason: FS < 60 Ezetimibe (Zetia Tab*) 10 mg PO DAILY WITH MEAL [facility] Last Admin: 06/17/17 10:03 Dose: Not Given Fluticasone Propionate (Flonase Nasal [place] 50mcg*) 2 spray BOTH NARES DAILY [facility] Last Admin: 06/17/17 10:08 Dose: 2 spray Sodium Chloride (Ns 0.9% 1000 Ml*) 1,000 mls @ 75 mls/hr IV PER RATE [facility] Insulin Human Lispro (Humalog*) 0 units SUBCUT Q6HR [facility] PRN Reason: Protocol Last Admin: 06/17/17 11:52 Dose: 1 unit Latanoprost (Xalatan 0.005%*) 1 drop BOTH EYES QPM [facility] Losartan Potassium (Cozaar Tab*) 100 mg PO DAILY [facility] Last Admin: 06/17/17 10:01 Dose: 100 mg Metoprolol Tartrate (Lopressor Tab*) 50 mg PO BID [facility] Last Admin: 06/17/17 10:00 Dose: 50 mg Morphine Sulfate (Morphine Inj (Syringe)*) 2 mg IV Q4H PRN PRN Reason: PAIN Last Admin: 06/17/17 08:58 Dose: 2 mg Nitroglycerin (Nitroglycerin 2% Oint*) 1 inch TOPICAL 0800,1400 [facility] PRN Reason: Protocol Last Admin: 06/17/17 14:55 Dose: Not Given Omeprazole (Prilosec Cap*) 20 mg PO DAILY [facility] Last Admin: 06/17/17 10:04 Dose: Not Given Ondansetron HCl (Zofran Inj*) 4 mg IV Q4H PRN PRN Reason: NAUSEA/VOMITING Vital Signs 06/17/17 06/17/17 06/17/17 04:30 04:31 04:44 Temperature 97.4 F 98 F Pulse Rate 120 Respiratory 22 20 Rate Blood Pressure 144/65 176/92 (mmHg) O2 Sat by Pulse 99 Oximetry 06/17/17 06/17/17 06/17/17 07:12 08:58 09:58 Temperature 97.7 F Pulse Rate 107 Respiratory 18 20 18 Rate Blood Pressure 115/102 (mmHg) O2 Sat by Pulse 98 Oximetry 06/17/17 06/17/17 11:01 15:21 Temperature 98.0 F 97.5 F Pulse Rate 90 85 Respiratory 18 16 Rate Blood Pressure 147/75 146/69 (mmHg) O2 Sat by Pulse 96 99 Oximetry Oxygen Devices in Use Now: None Appearance: 56 yo obese f in nAD, aAOx3 Eyes: No Scleral Icterus, PERRLA Ears/Nose/Mouth/Throat: NL Teeth, Lips, Gums, Mucous Membranes Moist Neck: NL Appearance and Movements; NL JVP, Trachea Midline Respiratory: Symmetrical Chest Expansion and Respiratory Effort, Clear to Auscultation Cardiovascular: NL Sounds; No Murmurs; No JVD, RRR Abdominal: NL Sounds; No Tenderness; No Distention, No Hepatosplenomegaly Lymphatic: No Cervical Adenopathy, No Axillary Adenopathy Extremities: No Edema, No Clubbing, Cyanosis Skin: No Rash or Ulcers, No Nodules or Sclerosis Neurological: Alert and Oriented x 3, NL Muscle Strength and Tone Result Diagrams: 06/17/17 03:15 06/17/17 03:15 Additional Lab and Data: Lab Results 06/17/17 06/17/17 06/17/17 Range/Units 03:15 03:15 03:15 WBC 7.4 (3.5-10.8) 10^3/ul RBC 4.51 (4.0-5.4) 10^6/ul Hgb 12.3 (12.0-16.0) g/dl Hct 37 (35-47) % MCV 81 (80-97) fL MCH 27 (27-31) pg MCHC 33 (31-36) g/dl RDW 15 (10.5-15) % Plt Count 360 (150-450) 10^3/ul MPV 7 L (7.4-10.4) um3 Neut % (Auto) 51.8 (38-83) % Lymph % (Auto) 35.1 (25-47) % [place] % (Auto) 8.9 (1-9) % Eos % (Auto) 3.5 (0-6) % Baso % (Auto) 0.7 (0-2) % Absolute Neuts (auto) 3.8 (1.5-7.7) 10^3/ul Absolute Lymphs (auto) 2.6 (1.0-4.8) 10^3/ul Absolute Monos (auto) 0.7 (0-0.8) 10^3/ul Absolute Eos (auto) 0.3 (0-0.6) 10^3/ul Absolute Basos (auto) 0 (0-0.2) 10^3/ul Absolute Nucleated RBC 0.01 10^3/ul Nucleated RBC % 0.1 INR (Anticoag Therapy) 0.85 L (0.89-1.11) APTT 28.4 (26.0-36.3) seconds D-Dimer, Quantitative < 200 (Less Than 230) ng/mL Sodium (133-145) mmol/L Potassium (3.5-5.0) mmol/L Chloride (101-111) mmol/L Carbon Dioxide (22-32) mmol/L Anion Gap (2-11) mmol/L BUN (6-24) mg/dL Creatinine (0.51-0.95) mg/dL Est GFR ( Amer) (>60) Est GFR (Non-Af Amer) (>60) BUN/Creatinine Ratio (8-20) Glucose (70-100) mg/dL Lactic Acid (0.5-2.0) mmol/L Calcium (8.6-10.3) mg/dL Total Bilirubin (0.2-1.0) mg/dL AST (13-39) U/L ALT (7-52) U/L Alkaline Phosphatase (34-104) U/L Troponin I (<0.04) ng/mL B-Natriuretic Peptide 23 ( - 100) pg/mL Total Protein (6.4-8.9) g/dL Albumin (3.2-5.2) g/dL Globulin (2-4) g/dL Albumin/Globulin Ratio (1-3) 06/17/17 06/17/17 Range/Units 03:15 03:15 WBC (3.5-10.8) 10^3/ul RBC (4.0-5.4) 10^6/ul Hgb (12.0-16.0) g/dl Hct (35-47) % MCV (80-97) fL MCH (27-31) pg MCHC (31-36) g/dl RDW (10.5-15) % Plt Count (150-450) 10^3/ul MPV (7.4-10.4) um3 Neut % (Auto) (38-83) % Lymph % (Auto) (25-47) % [place] % (Auto) (1-9) % Eos % (Auto) (0-6) % Baso % (Auto) (0-2) % Absolute Neuts (auto) (1.5-7.7) 10^3/ul Absolute Lymphs (auto) (1.0-4.8) 10^3/ul Absolute Monos (auto) (0-0.8) 10^3/ul Absolute Eos (auto) (0-0.6) 10^3/ul Absolute Basos (auto) (0-0.2) 10^3/ul Absolute Nucleated RBC 10^3/ul Nucleated RBC % INR (Anticoag Therapy) (0.89-1.11) APTT (26.0-36.3) seconds D-Dimer, Quantitative (Less Than 230) ng/mL Sodium 129 L (133-145) mmol/L Potassium 3.7 (3.5-5.0) mmol/L Chloride 92 L (101-111) mmol/L Carbon Dioxide 23 (22-32) mmol/L Anion Gap 14 H (2-11) mmol/L BUN 12 (6-24) mg/dL Creatinine 0.84 (0.51-0.95) mg/dL Est GFR ( Amer) 89.9 (>60) Est GFR (Non-Af Amer) 69.9 (>60) BUN/Creatinine Ratio 14.3 (8-20) Glucose 246 H (70-100) mg/dL Lactic Acid 4.2 H* (0.5-2.0) mmol/L Calcium 9.4 (8.6-10.3) mg/dL Total Bilirubin 0.30 (0.2-1.0) mg/dL AST 34 (13-39) U/L ALT 36 (7-52) U/L Alkaline Phosphatase 93 (34-104) U/L Troponin I 0.07 H* (<0.04) ng/mL B-Natriuretic Peptide ( - 100) pg/mL Total Protein 6.9 (6.4-8.9) g/dL Albumin 4.1 (3.2-5.2) g/dL Globulin 2.8 (2-4) g/dL Albumin/Globulin Ratio 1.5 (1-3) Assess/Plan/Problems-Billing Assessment: 56 yo f with h/o obesity, AGNES, DM2, GERD, HTN, SDH in 08/10-post traumatic, neg stress test 03/11 ( Dr. Mcleod's office )presents with angina like CP - Patient Problems (1) Unstable angina Comment: Pt's heparin gtt was switched to Lovenox Pt is pain free when she sits up-pain suggests pericarditis, but pt has significant risk factors and troponin that it's increasing. cont ASA/BB, cath in aM (2) AGNES (obstructive sleep apnea) Comment: CPAP nightly (3) Lactic acid increased Comment: suspect it's due to metformin Improved with iVF.Metformin stopped (4) HTN (hypertension) Comment: controlled Cont lopressor, norvasc, Losartan (5) GERD (gastroesophageal reflux disease) Comment: Stable continue Prilosec. (6) Hyponatremia Comment: Mild, improved with IVF (7) DVT prophylaxis Comment: lovenox Status and Disposition: OBV
[2017-06-17] MEDS: Cetirizine* 10 MG TAB PO SCH (17:55)
[2017-06-17] MEDS: Latanoprost 0.005%* 2.5 ml BTL BOTH EYES SCH (17:56)
--- NOTE | 2017-06-17 23:54 | CONS ---
CC: Naveen Arana MD CARDIOLOGY CONSULTATION NOTE: DATE OF CONSULT: 06/17/17 INDICATION FOR CONSULTATION: Chest pain, abnormal troponin. HISTORY OF PRESENT ILLNESS: The patient is a 56-year-old female with a history of hypertension, car otid artery disease, morbid obesity who was admitted to the hospital with chest pain. I had seen e patient in consultation back in April 2016. At that time, she was complaining of shortness o f breath. At that time, I had ordered a stress test on the patient which was not done until March 14. In February 2017, the patient underwent a chemical nuclear stress test, which demonstrated normal p erfusion throughout the myocardium, normal LV function, and a normal TID. The patient was admitted to the hospital yesterday because of chest pain. The patient states for past couple of days, she has noticed episodes of chest pain. Most notably she notices it early in the morning. She wakes out of a sound sleep with chest pain that has radiated up into her jaw. The patient states she sits forward and this discomfort goes away. The patient has not noticed any carlene st pain with exertion. She has her chronic shortness of breath which has not changed in a number of months. The patient decided to come to the emergency room for evaluation. On arrival, the patient 's EKG demonstrated normal sinus rhythm with very subtle ST segment depressions. Her initial tropon in level was 0.07. Her BNP was 23. The patient was admitted to the hospital for evaluation. She w as started on heparin. The patient did undergo an echocardiogram today, which demonstrated normal L V size and systolic function, mild aortic stenosis, no significant other valvular disease. It was u nchanged from an echocardiogram in 2015. Subsequently, the patient's troponin level elevated to 0. 19 and then 0.41. The patient has not had any other significant chest pain since being admitted to the hospital. PAST MEDICAL HISTORY: Significant for morbid obesity, hypertension, sleep apnea, carotid artery dis ease, COPD, cataract surgery. She has had a history of lap band procedure in 2004, bilateral salpin go oophorectomy, hernia surgery. OUTPATIENT MEDICATIONS: 1. Sertraline 5 mg a day. 2. Symbicort inhaler. 3. Losartan 100 mg a day. 4. Amlodipine 5 mg a day. 5. Ipratropium inhaler. 6. Clonazepam 2 mg as needed. 7. Wellbutrin 300 mg. 8. Ventolin inhaler. 9. Lasix 20 mg a day. 10. Aspirin 325 mg a day. ALLERGIES: She is intolerant of LOPID, LASIX, LIPITOR. FAMILY HISTORY: Mother had a CVA at 74, father had a CVA at 79. SOCIAL HISTORY: She is . She is currently . She lives alone. She is currently une mployed. She denies tobacco or alcohol use. PHYSICAL EXAM: Vital Signs: Height is 5 feet 2 inches, weight 213 pounds. Temperature 97.5, heart rate is 81, blood pressure 146/69, respiratory rate is 19. Sclerae anicteric. Oropharynx is pink wi thout erythema. Carotids are 2+ without bruits. JVD is normal. Thyroid is normal. Cardiac Exam: S1, S2 with a soft 1/6 systolic ejection murmur heard best at the left upper sternal border. PMI i s normal. Lungs are clear to auscultation bilaterally. There is no dullness to percussion. Abdome n is soft, nontender, nondistended with normoactive bowel sounds. She does have mild chest pain on palpation of her left anterior chest. Extremities show 1+ edema. She has 2+ pulses throughout. The patient is awake, alert, and oriented. She moves all 4 extremities equally. DIAGNOSTIC STUDIES/LAB DATA: Sodium 129, potassium 3.7. BUN 12, creatinine 0.8. Troponin 0.07, 0.1 9, 0.42. BNP is normal. CBC within normal limits. EKG as described above. IMPRESSION: This is a 56-year-old female who was admitted to the hospital with chest pain. In [facility], I think her chest pain is somewhat atypical, although she is having rest angina that radiates i nto her jaw first thing in the morning. The rest of the day she does not have any chest pain except for with palpation of her chest. The patient did have a normal stress test in February 2017. Currentl y, the patient has a mildly elevated troponin level with minimally abnormal EKG. Given her history o f hypertension and obesity, I think definitive evaluation of her coronary arteries is appropriate. I talked to the patient about the risks and benefits of cardiac catheterization and she is willing t o proceed. Further recommendations pending the results of her cardiac catheterization. [id number]/[facility] #: [id number]
[2017-06-18] MEDS: Insulin LISPRO* 1 UNITS UNIT SUBCUT SCH ×4 (00:01→18:29)
[2017-06-18 05:50] LABS: Hematocrit 34 % (35-47); Hemoglobin 11.1 g/dl (12.0-16.0); Mean Corpuscular HGB Conc 33 g/dl (31-36); Mean Corpuscular Hemoglobin 28 pg (27-31); Mean Corpuscular Volume 83 fL (80-97); Mean Platelet Volume 7 um3 (7.4-10.4); Red Blood Count 4.04 10^6/ul (4.0-5.4); Red Cell Distribution Width 15 % (10.5-15)
[2017-06-18 06:08] LABS: BUN/Creatinine Ratio 16.7 (8-20); Calcium 8.6 mg/dL (8.6-10.3); EGFR African American 97.9 (>60); EGFR Non-African American 76.1 (>60); HDL Cholesterol 28.4 mg/dL; Potassium 3.8 mmol/L (3.5-5.0)
[2017-06-18] MEDS: Morphine INJ* 2 MG/ML 1 ML SYRINGE (TWO MG - NEW SYRINGE VERSION) IV PRN (06:31)
[2017-06-18 06:34] LABS: Troponin I 0.16 ng/mL (<0.04)
[2017-06-18] MEDS ORDERED: Diazepam TAB(*) 5 MG PO ONE (07:30)
[2017-06-18] MEDS ORDERED: diPHENhydraMINE PO* 25 MG PO ONE (07:30)
[2017-06-18] MEDS: Nitroglycerin 2% OINT* 1 GM PAK TOPICAL SCH ×2 (08:30→14:29)
[2017-06-18] MEDS: clonazePAM TAB(*) 1 MG PO SCH ×2 (08:46→21:23)
[2017-06-18] MEDS: amLODIPine TAB* 5 MG PO SCH (08:47)
[2017-06-18] MEDS: Aspirin EC Low Dose* 81 MG TAB.EC PO SCH (08:47)
[2017-06-18] MEDS: Losartan TAB* 25 MG PO SCH (08:47)
[2017-06-18] MEDS: Metoprolol Tartrate TAB* 50 mg PO SCH ×2 (08:48→21:22)
[2017-06-18] MEDS: Omeprazole CAP* 20 MG PO SCH (09:01)
[2017-06-18] MEDS ORDERED: Heparin 2 UNITS/ML IVPREMIX* 2,000 ML IV ONE (09:26)
[2017-06-18] MEDS ORDERED: Lidocaine 1% INJ* 10 MG/ML 30 ML SDV ONE (09:26)
[2017-06-18] MEDS ORDERED: nitroGLYCERIN DRIP* 250 ML ONE ×2 (09:29→11:09)
[2017-06-18] MEDS ORDERED: Iohexol 350 (CONTRAST) 200 ML MDV IV ONE ×2 (09:29→09:38)
[2017-06-18] MEDS ORDERED: fentaNYL* 50 MCG/ML 2 ML VIAL (100 MCG VIAL) ONE (09:29)
[2017-06-18] MEDS ORDERED: VERAPAMIL 2.5 MG/ML 4 ML VIAL ONE (09:29)
[2017-06-18] MEDS ORDERED: Midazolam* 1 MG/ML 5 ML VIAL (5 MG) ONE (09:29)
[2017-06-18] MEDS ORDERED: Heparin(*) 1000 UNIT/ML 10 ML VIAL CATH LAB IV ONE (09:30)
[2017-06-18] MEDS ORDERED: Aspirin Low Dose CHEW TAB* 81 MG ONE (10:19)
[2017-06-18] MEDS ORDERED: Ticagrelor* 90 MG TAB PO ONE (10:20)
[2017-06-18] MEDS ORDERED: Nitroglycerin TAB 0.4 MG* 0.4 MG TAB SL PRN (11:04)
[2017-06-18] MEDS ORDERED: Bivalirudin(*) 250 MG VIAL ONE (11:08)
[2017-06-18] MEDS ORDERED: NS 0.9% 1000 ML* 1,000 ML IV SCH (11:15)
--- NOTE | 2017-06-18 13:32 | PN ---
Subjective Date of Service: 06/18/17 Interval History: Pt with 8/10 "punching" pain substernally with radiation to jaws(they seem to alternate) after ambulating to bathroom this AM. Taken to already planned LHC which found 90% mid Circumflex lesion (Dr. Cook). Started on brilinta. TG came back very elevated 1130. Objective Active Medications: Acetaminophen (Tylenol Tab*) 650 mg PO Q4H PRN PRN Reason: FEVER/PAIN Al Hydrox/Mg Hydrox/Simethicone (Maalox Plus*) 30 ml PO Q6H PRN PRN Reason: INDIGESTION Albuterol (Ventolin Hfa Inhaler*) 1 - 2 puff INH Q4H PRN PRN Reason: WHEEZING Amlodipine Besylate (Norvasc Tab*) 5 mg PO DAILY [facility] Last Admin: 06/18/17 08:47 Dose: 5 mg Aspirin (Aspirin Low Dose Tab*) 81 mg PO DAILY [facility] Bupropion HCl (Wellbutrin Sr Tab*) 100 mg PO DAILY [facility] Last Admin: 06/17/17 10:03 Dose: Not Given Bupropion HCl (Bupropion Xl*) 300 mg PO DAILY [facility] Last Admin: 06/17/17 10:03 Dose: Not Given Cetirizine HCl (Zyrtec*) 10 mg PO QPM [facility] Last Admin: 06/17/17 17:55 Dose: 10 mg Clonazepam (Klonopin Tab(*)) 1 mg PO BID [facility] Last Admin: 06/18/17 08:46 Dose: 1 mg Dextrose (D50w Syringe 50 Ml*) 12.5 gm IV PUSH .FOR FS < 60 - SS PRN PRN Reason: FS < 60 Ezetimibe (Zetia Tab*) 10 mg PO DAILY WITH MEAL [facility] Last Admin: 06/17/17 10:03 Dose: Not Given Fluticasone Propionate (Flonase Nasal [place] 50mcg*) 2 spray BOTH NARES DAILY [facility] Last Admin: 06/17/17 10:08 Dose: 2 spray Sodium Chloride (Ns 0.9% 1000 Ml*) 1,000 mls @ 100 mls/hr IV .per rate [facility] Stop: 06/18/17 22:00 Insulin Human Lispro (Humalog*) 0 units SUBCUT Q6HR [facility] PRN Reason: Protocol Last Admin: 06/18/17 13:04 Dose: 2 unit Latanoprost (Xalatan 0.005%*) 1 drop BOTH EYES QPM [facility] Last Admin: 06/17/17 17:56 Dose: 1 drop Losartan Potassium (Cozaar Tab*) 100 mg PO DAILY [facility] Last Admin: 06/18/17 08:47 Dose: 100 mg Metoprolol Tartrate (Lopressor Tab*) 50 mg PO BID [facility] Last Admin: 06/18/17 08:48 Dose: 50 mg Morphine Sulfate (Morphine Inj (Syringe)*) 2 mg IV Q4H PRN PRN Reason: PAIN Last Admin: 06/18/17 06:31 Dose: 2 mg Nitroglycerin (Nitroglycerin 2% Oint*) 1 inch TOPICAL 0800,1400 [facility] PRN Reason: Protocol Last Admin: 06/18/17 08:30 Dose: 1 inch Nitroglycerin (Nitroglycerin Tab 0.4 Mg*) 0.4 mg SL Q5M PRN PRN Reason: ANGINA Omeprazole (Prilosec Cap*) 20 mg PO DAILY [facility] Last Admin: 06/18/17 09:01 Dose: 20 mg Ondansetron HCl (Zofran Inj*) 4 mg IV Q4H PRN PRN Reason: NAUSEA/VOMITING Ticagrelor (Brilinta*) 90 mg PO BID [facility] Vital Signs 06/17/17 06/17/17 06/17/17 15:21 19:40 23:14 Temperature 97.5 F 97.4 F Pulse Rate 85 82 Respiratory 16 16 16 Rate Blood Pressure 146/69 126/61 (mmHg) O2 Sat by Pulse 99 98 Oximetry 06/17/17 06/18/17 06/18/17 23:28 03:57 06:31 Temperature 97.9 F 98.0 F Pulse Rate 94 86 Respiratory 20 16 20 Rate Blood Pressure 151/78 138/73 (mmHg) O2 Sat by Pulse 96 98 Oximetry 06/18/17 06/18/17 06/18/17 07:29 07:31 07:45 Temperature 98.0 F 98.3 F Pulse Rate 92 147 Respiratory 18 20 16 Rate Blood Pressure 140/102 132/99 (mmHg) O2 Sat by Pulse 99 Oximetry 06/18/17 06/18/17 06/18/17 08:46 09:01 11:15 Temperature 98.7 F Pulse Rate 95 Respiratory 20 20 19 Rate Blood Pressure 122/76 (mmHg) O2 Sat by Pulse 95 Oximetry 06/18/17 06/18/17 06/18/17 11:16 11:31 11:47 Temperature Pulse Rate 95 93 Respiratory 19 28 23 Rate Blood Pressure 122/76 158/87 (mmHg) O2 Sat by Pulse 95 96 Oximetry 06/18/17 12:34 Temperature 98.7 F Pulse Rate Respiratory Rate Blood Pressure (mmHg) O2 Sat by Pulse Oximetry Oxygen Devices in Use Now: None Appearance: NAD but still with chest discomfort. Eyes: No Scleral Icterus, PERRLA Ears/Nose/Mouth/Throat: Mucous Membranes Moist Neck: NL Appearance and Movements; NL JVP, Trachea Midline Respiratory: Symmetrical Chest Expansion and Respiratory Effort, Clear to Auscultation Cardiovascular: NL Sounds; No Murmurs; No JVD, RRR Abdominal: NL Sounds; No Tenderness; No Distention, No Hepatosplenomegaly, - - obese Extremities: No Edema, No Clubbing, Cyanosis Skin: No Rash or Ulcers Neurological: Alert and Oriented x 3, NL Sensation, NL Muscle Strength and Tone Result Diagrams: 06/18/17 05:22 06/18/17 05:22 Additional Lab and Data: Laboratory Results - last 24 hr 06/17/17 06/17/17 06/17/17 14:37 14:37 17:30 WBC RBC Hgb Hct MCV MCH MCHC RDW Plt Count MPV Neut % (Auto) Lymph % (Auto) [place] % (Auto) Eos % (Auto) Baso % (Auto) Absolute Neuts (auto) Absolute Lymphs (auto) Absolute Monos (auto) Absolute Eos (auto) Absolute Basos (auto) Absolute Nucleated RBC Nucleated RBC % Sodium Potassium Chloride Carbon Dioxide Anion Gap BUN Creatinine Est GFR ( Amer) Est GFR (Non-Af Amer) BUN/Creatinine Ratio Glucose POC Glucose (mg/dL) 259 H Lactic Acid 2.8 H* Calcium Magnesium Troponin I 0.41 H* Triglycerides Cholesterol LDL Cholesterol LDL Cholesterol Direct HDL Cholesterol 06/17/17 06/18/17 06/18/17 23:31 05:22 05:22 WBC 7.0 RBC 4.04 Hgb 11.1 L Hct 34 L MCV 83 MCH 28 MCHC 33 RDW 15 Plt Count 308 MPV 7 L Neut % (Auto) 51.8 Lymph % (Auto) 32.7 [place] % (Auto) 10.9 H Eos % (Auto) 4.0 Baso % (Auto) 0.6 Absolute Neuts (auto) 3.6 Absolute Lymphs (auto) 2.3 Absolute Monos (auto) 0.8 Absolute Eos (auto) 0.3 Absolute Basos (auto) 0 Absolute Nucleated RBC 0.01 Nucleated RBC % 0.1 Sodium 134 Potassium 3.8 Chloride 101 Carbon Dioxide 24 Anion Gap 9 BUN 13 Creatinine 0.78 Est GFR ( Amer) 97.9 Est GFR (Non-Af Amer) 76.1 BUN/Creatinine Ratio 16.7 Glucose 221 H POC Glucose (mg/dL) 143 H Lactic Acid Calcium 8.6 Magnesium 2.0 Troponin I 0.16 H* Triglycerides 1129 Cholesterol 190 LDL Cholesterol LDL Cholesterol Direct 58 HDL Cholesterol 28.4 06/18/17 06/18/17 05:59 11:36 WBC RBC Hgb Hct MCV MCH MCHC RDW Plt Count MPV Neut % (Auto) Lymph % (Auto) [place] % (Auto) Eos % (Auto) Baso % (Auto) Absolute Neuts (auto) Absolute Lymphs (auto) Absolute Monos (auto) Absolute Eos (auto) Absolute Basos (auto) Absolute Nucleated RBC Nucleated RBC % Sodium Potassium Chloride Carbon Dioxide Anion Gap BUN Creatinine Est GFR ( Amer) Est GFR (Non-Af Amer) BUN/Creatinine Ratio Glucose POC Glucose (mg/dL) 201 H 168 H Lactic Acid Calcium Magnesium Troponin I Triglycerides Cholesterol LDL Cholesterol LDL Cholesterol Direct HDL Cholesterol Assess/Plan/Problems-Billing Assessment: 56 yo f with h/o morbid obesity, AGNES, DM2, GERD, HTN, SDH in 08/10-post traumatic, neg stress test 03/11 ( Dr. Mcleod's office )presents with angina like CP. s/p LHC with 90% mid circ stenosis s/p stent. On brilinta. Hypertriglycerdemia to 1130 (on fenofibrate, zetia at home, allergic to gemfibrozil) - Patient Problems (1) Unstable angina Current Visit: Yes Status: Acute Code(s): I20.0 - UNSTABLE ANGINA SNOMED Code(s): 1353549 Comment: s/p stent to 90% mid-circ lesion. (Dr. Cook, 06/18) started on Brilinta 90mg BID, aspiring 81mg (got load in ED) continue metoprolol tartrate 50mg BID brought to ICU s/p cath telemetry f/u Cardiology recs (2) HTN (hypertension) Current Visit: Yes Status: Acute Code(s): I10 - ESSENTIAL (PRIMARY) HYPERTENSION SNOMED Code(s): 95571832 Comment: controlled Cont lopressor 50mg BID , norvasc 5mg, Losartan 100mg (3) AGNES (obstructive sleep apnea) Current Visit: Yes Status: Acute Code(s): G47.33 - OBSTRUCTIVE SLEEP APNEA ( ADULT) (PEDIATRIC) SNOMED Code(s): 51687822 Comment: CPAP nightly (4) GERD (gastroesophageal reflux disease) Current Visit: No Status: Acute Code(s): K21.9 - GASTRO-ESOPHAGEAL REFLUX DISEASE WITHOUT ESOPHAGITIS SNOMED Code(s): 902333818 Comment: Stable continue Prilosec. (5) Hypertriglyceridemia without hypercholesterolemia Current Visit: Yes Status: Acute Code(s): E78.1 - PURE HYPERGLYCERIDEMIA SNOMED Code(s): 641296451 Comment: TG 1130, restart home fenofibrate and continue zetia. f/u Cardiology recs in re: statin. Allergic to gemfibozil (reported pancreatitis.... ?or 2/2 TG?) LDL 58, HDL 28. Status and Disposition: medicine inpatient, possible d/c 06/19 Attending: Al Hobbs
[2017-06-18] MEDS: Ezetimibe TAB* 10 MG PO SCH (14:51)
[2017-06-18] MEDS: Fluticasone NASAL SPRAY 50MCG* 16 gm SPRAY BTL BOTH NARES SCH (14:51)
[2017-06-18] MEDS: buPROPion SR TAB.SR* 100 MG PO SCH (14:51)
[2017-06-18] MEDS: BuPROPion XL* 300 MG TAB.XL PO SCH (14:51)
[2017-06-18] MEDS ORDERED: Isosorbide Mononitrate ER TAB* 30 MG PO SCH (16:00)
[2017-06-18] MEDS: FENOFIBRATE 120 MG PO SCH (16:44)
[2017-06-18] MEDS ORDERED: Atorvastatin* 40 MG TAB PO SCH (17:00)
[2017-06-18] MEDS ORDERED: Metoprolol Tartrate TAB* 50 mg PO ONE (17:43)
[2017-06-18] MEDS: Hydrochlorothiazide TAB* 25 MG PO SCH (18:29)
[2017-06-18] MEDS: Cetirizine* 10 MG TAB PO SCH (18:29)
[2017-06-18] MEDS: Latanoprost 0.005%* 2.5 ml BTL BOTH EYES SCH (18:35)
[2017-06-18] MEDS: Ticagrelor* 90 MG TAB PO SCH (21:23)
--- NOTE | 2017-06-19 05:02 | CATH ---
CC: Dr. Naveen Arana; Dr. Kenn Mcleod* CARDIAC CATHETERIZATION AND INTERVENTION REPORT: DATE OF PROCEDURE: 06/18/17 INDICATIONS FOR PROCEDURE: The patient with abnormal cardiac enzymes suggesting acute coronary syndrome, history of recurrent chest discomfort. PROCEDURE: Coronary arteriography, balloon angioplasty and placement of a 2.5 x 16 mm long Synergy drug-eluting stent in the mid circumflex post dilated to 2.7 mm. DESCRIPTION OF PROCEDURE: The patient was interviewed and examined on the floor in the hospital where the risks and benefits were explained. She understood them and wish to proceed. On the floor of the hospital, right radial artery was assessed for size and found to be appropriate for approach. She was brought to the cardiovascular laboratory where formal time-out was performed and the patient was prepped and draped in sterile fashion. Right radial artery was cannulated under ultrasound guidance and a 6-Gambian glide sheath was placed. Coronary arteriography was performed utilizing a TIG 4 curve 5-Gambian catheter. Following this the decision was made to intervene into the critical mid circumflex lesion. The patient received 180 mg of Brilinta. The patient received 81 mg of aspirin (her daily dose) and also received Angiomax bolus and Angiomax drip was started. Of note, the patient had received the radial artery cocktail, which included 3000 units of heparin, 300 mcg of nitroglycerin and 3 mg of verapamil the ACT was subtherapeutic and as such the decision was made to use Angiomax. Guiding views were obtained utilizing a 6-Gambian VL 3.5 curved guide catheter. The guide wire utilized was a BMW 190 length. Balloon angioplasty was initially performed utilizing 2.5 x 15 mm long Emerge balloon followed by stenting with 2.5 x 16 mm long Synergy drug-eluting stent postdilated with a 2.5 x 8 mm long NC Emerge balloon to high pressures. At the end of the case the catheter and sheath were removed and hemostasis was obtained with a Vasc band. A reverse Barbeau was a B grade. The patient was transported to the intensive care unit in stable condition. The total contrast used was 170 cc of Omnipaque dye. The radiation exposure included 1620 minutes of fluoro time. The air kerma radiation was 2176 milligray with DAPA radiation was 11,892 microgray per meter squared. RESULTS: CORONARY ARTERIOGRAPHY: A. Right coronary artery - a dominant vessel supplying a moderate sized low lying acute marginal branch, which parallel to PDA and a small bifurcating posterior left ventricular branch. The proximal portion of the right coronary artery had mild 20% narrowing seen. Its proximal portion followed by another area of 20% to 25% narrowing. The rest of the right coronary artery had mild luminal irregularities, but no significant stenosis. B. Left coronary artery: 1. Left main - short in nature and widely patent. 2. Left anterior descending artery - the left anterior descending artery had mild luminal irregularities. There were no critical stenoses seen throughout the course of the left anterior descending artery or its diagonal branches. 3. Circumflex artery - a nondominant vessel with a high small first obtuse marginal branch. The mid portion of the right coronary artery had a very hazy area with a critical stenosis of as much as 90%. Past this point in the vessel was moderate disease with 45% to 50% narrowing leading to a bifurcation into two low- lying obtuse marginal branches. INTERVENTION INTO MID CIRCUMFLEX ARTERY: Successful reduction of hazy critical 90% blockage with balloon angioplasty and placement of a 2.5 x 16 mm long Synergy drug- eluting stent postdilated 2.7 mm with PONCE-3 flow, no dissection seen with 0% residual stenosis. OVERALL ASSESSMENT: Significant single vessel disease with critical stenosis to the mid circumflex treated with balloon angioplasty and stent placement as described above. Aggressive risk factor management including obesity treatment with recommendations for significant weight reduction in addition to cholesterol management and ongoing blood pressure management will be pursued through the patient's primary office technician, Dr. Kenn Mcleod as well as through Dr. Naveen Arana, the patient's family doctor. This information was shared with Dr. Kenn Mcleod at the time of the cardiac catheterization. [id number]/[facility] #: [id number] [facility]
[2017-06-19 06:27] LABS: Hematocrit 34 % (35-47); Hemoglobin 11.3 g/dl (12.0-16.0); Mean Corpuscular HGB Conc 33 g/dl (31-36); Mean Corpuscular Hemoglobin 27 pg (27-31); Mean Corpuscular Volume 82 fL (80-97); Mean Platelet Volume 7 um3 (7.4-10.4); Red Blood Count 4.13 10^6/ul (4.0-5.4); Red Cell Distribution Width 15 % (10.5-15); White Blood Count 7.7 10^3/ul (3.5-10.8)
[2017-06-19 06:39] LABS: Albumin 3.6 g/dL (3.2-5.2); BUN/Creatinine Ratio 12.9 (8-20); Calcium 8.8 mg/dL (8.6-10.3); EGFR African American 110.9 (>60); EGFR Non-African American 86.2 (>60); Globulin 2.7 g/dL (2-4); HDL Cholesterol 30.7 mg/dL; Potassium 3.6 mmol/L (3.5-5.0); Total Bilirubin 0.5 mg/dL (0.2-1.0); Total Protein 6.3 g/dL (6.4-8.9)
[2017-06-19] MEDS ORDERED: amLODIPine TAB* 5 MG PO SCH (08:57)
[2017-06-19] MEDS ORDERED: Aspirin Low Dose CHEW TAB* 81 MG PO SCH (09:00)
[2017-06-19] MEDS ORDERED: Isosorbide Mononitrate ER TAB* 30 MG PO SCH (09:00)
[2017-06-19] MEDS: Fluticasone NASAL SPRAY 50MCG* 16 gm SPRAY BTL BOTH NARES SCH (09:32)
[2017-06-19] MEDS: Ezetimibe TAB* 10 MG PO SCH (09:33)
[2017-06-19] MEDS: Metoprolol Tartrate TAB* 50 mg PO SCH ×2 (09:33→14:39)
[2017-06-19] MEDS: Ticagrelor* 90 MG TAB PO SCH (09:34)
[2017-06-19] MEDS: Losartan TAB* 25 MG PO SCH (09:34)
[2017-06-19] MEDS: Omeprazole CAP* 20 MG PO SCH (09:34)
[2017-06-19] MEDS: Hydrochlorothiazide TAB* 25 MG PO SCH (09:34)
[2017-06-19] MEDS: buPROPion SR TAB.SR* 100 MG PO SCH (09:34)
[2017-06-19] MEDS: Insulin LISPRO* 1 UNITS UNIT SUBCUT SCH ×2 (09:34→13:02)
[2017-06-19] MEDS: clonazePAM TAB(*) 1 MG PO SCH (09:34)
[2017-06-19] MEDS: BuPROPion XL* 300 MG TAB.XL PO SCH (09:34)
--- NOTE | 2017-06-19 11:41 | PN ---
Subjective Date of Service: 06/19/17 - CC: sob, chest pain Interval History: The patient has had no further chest pain since stents. She is short of breath, has been told it is due to Brilinta, pt says she can't drink caffiene after noon or it will keep her awake. She has not ambulated out of her room. Medications Active Medications: Acetaminophen (Tylenol Tab*) 650 mg PO Q4H PRN PRN Reason: FEVER/PAIN Al Hydrox/Mg Hydrox/Simethicone (Maalox Plus*) 30 ml PO Q6H PRN PRN Reason: INDIGESTION Albuterol (Ventolin Hfa Inhaler*) 1 - 2 puff INH Q4H PRN PRN Reason: WHEEZING Amlodipine Besylate (Norvasc Tab*) 10 mg PO DAILY [facility] Last Admin: 06/19/17 09:33 Dose: 10 mg Aspirin (Aspirin Low Dose Tab*) 81 mg PO DAILY [facility] Last Admin: 06/19/17 09:34 Dose: 81 mg Bupropion HCl (Wellbutrin Sr Tab*) 100 mg PO DAILY [facility] Last Admin: 06/19/17 09:34 Dose: 100 mg Bupropion HCl (Bupropion Xl*) 300 mg PO DAILY [facility] Last Admin: 06/19/17 09:34 Dose: 300 mg Cetirizine HCl (Zyrtec*) 10 mg PO QPM [facility] Last Admin: 06/18/17 18:29 Dose: 10 mg Clonazepam (Klonopin Tab(*)) 1 mg PO BID [facility] Last Admin: 06/19/17 09:34 Dose: 1 mg Dextrose (D50w Syringe 50 Ml*) 12.5 gm IV PUSH .FOR FS < 60 - SS PRN PRN Reason: FS < 60 Ezetimibe (Zetia Tab*) 10 mg PO DAILY WITH MEAL [facility] Last Admin: 06/19/17 09:33 Dose: 10 mg Fluticasone Propionate (Flonase Nasal [place] 50mcg*) 2 spray BOTH NARES DAILY [facility] Last Admin: 06/19/17 09:32 Dose: 2 spray Hydrochlorothiazide (Hydrodiuril Tab*) 25 mg PO DAILY [facility] Last Admin: 06/19/17 09:34 Dose: 25 mg Insulin Human Lispro (Humalog*) 0 units SUBCUT ACHS MIKAYLA PRN Reason: Protocol Last Admin: 06/19/17 09:34 Dose: 4 units Isosorbide Mononitrate (Imdur Er Tab*) 30 mg PO DAILY [facility] Last Admin: 06/19/17 09:33 Dose: 30 mg Latanoprost (Xalatan 0.005%*) 1 drop BOTH EYES QPM [facility] Last Admin: 06/18/17 18:35 Dose: 1 drop Losartan Potassium (Cozaar Tab*) 100 mg PO DAILY [facility] Last Admin: 06/19/17 09:34 Dose: 100 mg Metoprolol Tartrate (Lopressor Tab*) 50 mg PO TID [facility] Last Admin: 06/19/17 09:33 Dose: 50 mg Morphine Sulfate (Morphine Inj (Syringe)*) 2 mg IV Q4H PRN PRN Reason: PAIN Last Admin: 06/18/17 06:31 Dose: 2 mg Nitroglycerin (Nitroglycerin Tab 0.4 Mg*) 0.4 mg SL Q5M PRN PRN Reason: ANGINA Fenofibrate [ (Fenofibrate] 120 Mg) 120 mg PO DAILY [facility] Last Admin: 06/18/17 16:44 Dose: Not Given Omeprazole (Prilosec Cap*) 20 mg PO DAILY [facility] Last Admin: 06/19/17 09:34 Dose: 20 mg Ondansetron HCl (Zofran Inj*) 4 mg IV Q4H PRN PRN Reason: NAUSEA/VOMITING Ticagrelor (Brilinta*) 90 mg PO BID [facility] Last Admin: 06/19/17 09:34 Dose: 90 mg Objective Vital Signs: Temp Pulse Resp BP Pulse Ox 96.5 F 91 24 164/106 95 06/19/17 11:28 06/19/17 06:01 06/19/17 06:35 06/19/17 06:01 06/19/17 06:01 Oxygen Devices in Use Now: Nasal Cannula Appearance: Obese older middle aged woman seated in no distress. Eyes: No Scleral Icterus, PERRLA Ears/Nose/Mouth/Throat: Clear Oropharnyx, Mucous Membranes Moist Neck: Trachea Midline Respiratory: Symmetrical Chest Expansion and Respiratory Effort, Clear to Auscultation Cardiovascular: RRR - 2/6 SM RUSB, clear S2. Abdominal: NL Sounds; No Tenderness; No Distention Extremities: No Edema - thick from obesity, warm. R wrist cath site no ecchyomsis or hematoma, good distal pulse, non tender. Skin: No Rash or Ulcers Neurological: Alert and Oriented x 3, NL Gait Lines/Tubes/Other Access: Clean, Dry and Intact Peripheral IV Laboratory Results: 06/19/17 06:00 06/19/17 06:00 INR (Anticoag Therapy) 0.85 (0.89-1.11) L 06/17/17 03:15 APTT 34.5 seconds (26.0-36.3) 06/17/17 11:05 Total Bilirubin 0.50 mg/dL (0.2-1.0) 06/19/17 06:00 AST 37 U/L (13-39) 06/19/17 06:00 ALT 31 U/L (7-52) 06/19/17 06:00 Alkaline Phosphatase 88 U/L (34-104) 06/19/17 06:00 B-Natriuretic Peptide 23 pg/mL (-100) 06/17/17 03:15 Total Protein 6.3 g/dL (6.4-8.9) L 06/19/17 06:00 Albumin 3.6 g/dL (3.2-5.2) 06/19/17 06:00 Globulin 2.7 g/dL (2-4) 06/19/17 06:00 Albumin/Globulin Ratio 1.3 (1-3) 06/19/17 06:00 Triglycerides 616 mg/dL 06/19/17 06:00 Cholesterol 174 mg/dL 06/19/17 06:00 LDL Cholesterol mg/dL 06/19/17 06:00 HDL Cholesterol 30.7 mg/dL 06/19/17 06:00 06/17/17 06/17/17 06/18/17 08:37 14:37 05:22 Troponin I 0.19 H* 0.41 H* 0.16 H* Diagnostic Imaging: ECHO 06/17/17: LVH, EF 55-60%, mild , MG 15 mmHg, mild MR. Cath 06/18/17: 90% occlusion Cx to REINA, mild dz distal cx, LAD, RCA on medical management. EKG Data: Monitor: NSR 80's. Assessment/Plan 56 yo f with h/o morbid obesity, AGNES, DM2, GERD, HTN, mixed dyslipidemia, morbid obesity, FHx CAD, presents with CP. s/p LHC with 90% mid circ stenosis s /p stent. On brilinta. Hypertriglycerdemia to 1130 (on fenofibrate, zetia at home, allergic to gemfibrozil and per patient intolerant/allergic to Lipitor and 3 other statins.) CAD: Angina free and wants to go home but BP not controlled, HR in the 80's, suboptimal control of triglycerides and the patient has not yet walked. HTN: Consider Coreg to replace metoprolol, start 25 BID, could start tonight. Consider trial of a different ARB, perhaps Vasartan to see if improved control. Consider stopping Imdur if able to control BP with other medications. BNP normal, but diuretics may help BP control. Lipids: Verify if allergy/intolerance from primary MD If never tried, pulse trial of adding Crestor 2.5 mg twice weekly. Dietary modifications will be needed for Triglycerides, I recommend education via dietary. : Mild, I don't feel related to SOB. Ambulate today. SOB: COPD vs Brilinta. D/c on Brilinta, but plavix an option if no improvement. Needs follow up next week with Dr. Mcleod, referral to cardiac rehab.
[2017-06-19] MEDS: FENOFIBRATE 120 MG PO SCH (12:00)
[2017-06-19 12:22] VITALS: BP 136/78
--- NOTE | 2017-06-20 18:01 | DS ---
DISCHARGE SUMMARY: DATE OF ADMISSION: 06/17/17 DATE OF DISCHARGE: 06/19/17 ADMITTING PROVIDER: Jeremie Beltrán MD PRIMARY CARE PROVIDER: Naveen Arana MD ATTENDING PHYSICIAN: Al Hobbs MD CHIEF COMPLAINT: Chest pain and shortness of breath. PRINCIPAL DIAGNOSES: Angina; coronary artery disease, status post 90% mid circumflex stenosis, status post drug-eluting stent. SECONDARY DIAGNOSES: 1. Diabetes mellitus. 2. Obesity with failed status post Lap-Band insertion in 2004 and removal in 2013. 3. Hypertension. 4. Obstructive sleep apnea, on CPAP. 5. Gastroesophageal reflux disease. 6. Anxiety. 7. Depression. 8. Panic disorders. 9. History of mechanical fall and black eyes with head trauma and subdural hematoma. 10. Left shoulder bursitis. 11. Glaucoma. 12. Cataract surgery. 13. Hernia surgery. 14. BSO, 2013. 15. Tubal ligation. HISTORY OF PRESENT ILLNESS AND HOSPITAL COURSE: Ms. Hartman is a 56-year-old female H as above, brought in by ambulance after complaining of chest pain for 1 week that was intermittent, present mainly at night and when supine. Symptoms became more constant and the discomfort was midsternal with radiation in to her bilateral extremities and jaw bilaterally. Pain has often been mild, but then became more intense. She had a sore throat recently. The patient's initial troponin was 0.07. She had been given aspirin en route to the emergency room and then started on heparin. She follows as an outpatient with Dr. Kenn Mcleod and had a low risk/normal stress test in March 2017. She has attested to some upper sinus congestion. The patient was admitted to observation status for ACS rule out. Troponins surya to 0.19 and then peaked at 0.41. The patient on morning of 06/18/17, still expressed sensation of 8/10 chest discomfort radiating into her bilateral jaws, worse after ambulating to the bathroom. Dr. Mcleod evaluated the patient on 06/18/17 and thought the patient needed to get a cardiac catheterization to definitely rule out coronary artery disease. Dr. Cook took the patient later that day and found a 90% mid circ lesion for which a drug-eluting stent was placed. The patient was started on Brilinta. Aspirin was continued. She was transferred to ICU for further monitoring. The patient's blood pressure was difficult to control despite being on multiple agents. Imdur 30 mg was added and then hydrochlorothiazide(not continued on discharge, restarted on home lasix instead). Of note, the patient's initial furosemide had been held. The patient was also on losartan 100 mg and metoprolol 50 mg b.i.d.; Dr. Cook increased that up to t.i.d. By morning of hospital day #3, the patient was feeling better. Blood pressures were better controlled. The patient will be following up with Dr. Mcleod as an outpatient. The patient had a lipid panel, which is significant for triglycerides of 1129, HDL of 28.4, and LDL of 58. The patient had recently been started on Zetia and fenofibrate for few months with her PCP. The patient had reported a history of allergy secondary to GEMFIBROZIL use many many years ago with the reported reaction being pancreatitis. Of course, it is difficult to say whether the underlying hypertriglyceridemia could have been the actual cause of that episode and the patient has had several episodes of pancreatitis over the years , likely 2/2 to the trigylcerids. Her last outpatient triglyceride level was reportedly in the 700 range. She has been gaining a lot of weight ever since her Lap-Band was taken off secondary to sensations of inability to swallow her saliva resulting in sensation of "aspirating on it." The patient has also stated that she has failed multiple statins including atorvastatin and approximately 4 other statins saying that they caused her back pains. The patient will need to discuss her hypertriglyceridemia management with Dr. Mcleod. She will continue on her Zetia and fenofibrate without addition of statin for now. DISCHARGE MEDICATIONS: Include: 1. Imdur 30 mg p.o. daily. 2. Metoprolol tartrate 100 mg in the a.m., 50 mg at night. 3. Zetia 10 mg daily. 4. Fenofibrate 120 mg daily. 5. Flonase 2 sprays both nares daily. 6. Lasix 40 mg daily. 7. Xyzal 5 mg daily. 8. Losartan 100 mg daily. 9. Nitroglycerin 0.4 mg tabs sublingual q.5 minutes p.r.n. for chest pain. 10. Prilosec 20 mg p.o. daily. 11. Brilinta 90 mg p.o. b.i.d. 12. Amlodipine 5 mg daily. 13. Wellbutrin 300 mg daily. 14. Klonopin 1 mg p.o. b.i.d. 15. Metformin 500 mg p.o. daily. Note the new medications include: Brilinta an increase in the metoprolol and the addition of Imdur 30mg daily DIET: Carbohydrate consistent, heart healthy. ACTIVITY LEVEL: No restriction. DISCHARGE INSTRUCTIONS: The patient to follow up with Dr. Mcleod on 06/26/17 at 12:30 p[address] as well as Dr. Naveen Arana. Of note, Dr. Mcclendon evaluated the patient on day of discharge after this discharge medications were reconciled and made recommendations to consider replacing the metoprolol with Coreg 25 twice a day; trialing a different ARB such as valsartan instead of losartan to see if hypertension is controlled better and consider stopping Imdur if the above changes had good effect. These are certainly reasonable recommendations, but discharge paperwork had already been done and these changes can be discussed with Dr. Mcleod as an outpatient on 06/26/17 after blood pressure can be reevaluated at that time. TIME SPENT: On discharge 35 minutes. [id number]/[facility] #: [id number] M[facility]
== END 2017-06-19 14:53 | disposition home or self-care (01) ==
LOC: ED 02:53 → MEDTELE 04:03 → ICU 06-18 11:17
PROVIDERS: ADMIT Internal Medicine; ATTEND Internal Medicine
DX: I25.119 Atherosclerotic heart disease of native coronary artery with unspecified angina pectoris (principal); R07.89 Other chest pain; R11.0 Nausea; R42 Dizziness and giddiness; I34.0 Nonrheumatic mitral (valve) insufficiency; E11.9 Type 2 diabetes mellitus without complications; Z79.84 Long term (current) use of oral hypoglycemic drugs; I35.0 Nonrheumatic aortic (valve) stenosis; I10 Essential (primary) hypertension; Z79.899 Other long term (current) drug therapy; R00.0 Tachycardia, unspecified; F17.210 Nicotine dependence, cigarettes, uncomplicated; G47.33 Obstructive sleep apnea (adult) (pediatric); R68.84 Jaw pain; M79.603 Pain in arm, unspecified; F41.8 Other specified anxiety disorders; E66.9 Obesity, unspecified; F41.0 Panic disorder [episodic paroxysmal anxiety]
CPT/HCPCS: 36415; 71010; 76937; 80048; 80053; 80061; 83605; 83721; 83735; 83880; 84484; 85025; 85379; 85610; 85652; 85730; 86140; 93005; 93306; 93454; 96361; 96365; 96366; 96375; 96376; 99284; A9270-GY; C1725; C1769; C1876; C1887; C8929; C9600-LC; G0378; J0583; J1644; J1650; J2001; J2250; J2270; J3010

== ENCOUNTER 2018-09-15 16:44 | Inpatient (IN) | payer BC, MEDICARE ==
[~2018-09-15 16:44] MED LIST: Buffered Lidocaine 1% SYRIN* 1 ML/SYRINGE INTRADERM ONE
[2018-09-15] MEDS ORDERED: Ipratropium 0.5MG/2.5ML NEB* 0.5 MG/2.5 ML NEB.SOLN INH PRN (17:07)
[2018-09-15] MEDS ORDERED: Nitroglycerin TAB 0.4 MG* 0.4 MG TAB SL PRN (17:07)
[2018-09-15] MEDS ORDERED: Fluticasone NASAL SPRAY 50MCG* 16 gm SPRAY BTL BOTH NARES PRN (17:07)
[2018-09-15] MEDS: NS 0.9% 1000 ML** 1,000 ML IV SCH (17:47)
[2018-09-15] MEDS: Latanoprost 0.005%* 2.5 ml BTL BOTH EYES SCH (17:56)
[2018-09-15] MEDS ORDERED: Metoprolol Tartrate TAB* 50 mg PO SCH (18:00)
[2018-09-15] MEDS ORDERED: Dextrose 50% Syringe 50 ML* 25 GM/50 ML SYRINGE IV PUSH PRN (18:33)
--- NOTE | 2018-09-15 20:18 | CONS ---
CC: Dr. Arana; Dr. Mcleod; Dr. Chacon; Dr. Childs * CONSULTATION REPORT: DATE OF CONSULT: 09/15/18 PRIMARY CARE PROVIDER: Dr. Arana. REASON FOR CONSULT: Hyponatremia. HISTORY OF PRESENT ILLNESS: Nikki Calhoun is a 58-year-old female with history of obesity, diabetes, hypertension, coronary artery disease, as well as obstructive sleep apnea, who has history of failed gastric sleeve in the past and discontinuation of it in 2013, who is scheduled for tomorrow to have a gastric bypass surgery and she presented to the hospital preoperatively for hyponatremia. The patient has history of hyponatremia in the past and today lab work documented sodium of 122. Dr. Chacon wanted the patient to be evaluated preoperatively today by the hospitalist team. The patient has chronic hyponatremia dating back to 2016. Her hyponatremia usually is mild with the lowest level in the past 3 years of 123 and that was noted in 2017. The patient stated that for the past 2 weeks, she had been only on liquid diet that included shakes and broth. She stated that she does not limit her salt intake. The patient also lost approximately 40 pounds prior to her surgery and that occurred over a period of several months. Otherwise, the patient is at her baseline status and has no new complaints. She is eager to have her surgery tomorrow. PAST MEDICAL HISTORY: 1. History of diabetes type 2, most recent hemoglobin A1c was 6.2. 2. History of hypertension. 3. History of hyperlipidemia. 4. History of coronary artery disease, status post cardiac stent in circumflex artery in 2017. The patient's stunt man is Dr. Mcleod. 5. History of carotid artery stenosis. 6. History of depression. 7. History of anxiety. PAST SURGICAL HISTORY: 1. History of tubal ligation. 2. History of cataract removal. 3. History of cholecystectomy. 4. History of ventral hernia repair with mesh in 2014. 5. Laparoscopic gastric band in 2003, removal in 2013. 6. Oophorectomy in 2013. ALLERGIES: GEMFIBROZIL, ATORVASTATIN, LATEX, STATINS, and FRAGRANCES. FAMILY HISTORY: Positive for father at the age of 79 secondary to stroke, mother at the age of 74 secondary to stroke. SOCIAL HISTORY: The patient is , lives alone, currently unemployed. She denies any alcohol, tobacco, or drug use. As her surrogate, the patient mentions her , Yassine Calhoun. REVIEW OF SYSTEMS: The patient stated that she has lost approximately 40 pounds of weight in the past year. In the past couple of weeks, she had been on liquid diet due to preop recommendations. She denies any recent fevers. She denies any abdominal pain. All the remaining 12 systems were reviewed with the patient and were otherwise negative. PHYSICAL EXAM: Blood pressure of 168/72, heart rate of 72 and regular, respiratory rate 16, oxygen saturation 99% on room air, temperature 97.6. General: The patient is a pleasant 58-year-old female, who is in no acute distress. Alert, awake, and oriented x3. HEENT: Head: Atraumatic, normocephalic. Eyes: Pupils are equal and reactive to light and accommodation. Oropharynx is clear. Mucosa moist. Neck: Supple. No JVD. No bruits bilaterally. Cardiovascular: Regular rate and rhythm. No murmur. Respiratory: Clear to auscultation bilaterally. Abdomen: Soft, nontender. Bowel sounds present in all 4 quadrants. Extremities: There is no edema. Pulses are +2 bilaterally. No clubbing or cyanosis. On neuro evaluation, speech is clear. Cranial nerves II through XII are grossly intact. Motor strength is 5/5 bilaterally. On evaluation of the skin, no ecchymotic areas or rashes noted. LABORATORY DATA: Most recent laboratory data obtained today as outpatient shows sodium of 122, potassium 4.6, chloride 87, carbon dioxide 26, BUN 15, creatinine 0.82. ASSESSMENT AND PLAN: 1. Hyponatremia. It appears to be hypochloremic hyponatremia. The patient denies any problems with abnormal bowel movements or abdominal pain. The patient has history of chronic hyponatremia, which may be of syndrome of inappropriate antidiuretic hormone secretion pattern. Due to her liquid diet in the past 2 weeks, I suspect that may be she appears to be slightly hypovolemic and prerenal state. I will treat with intravenous hydration and recheck the patient's levels in the morning. 2. In regards to the patient's diabetes, the patient's oral hypoglycemics are going to be held and the patient is going to be placed on insulin sliding scale preoperatively. 3. In regards to the patient's hypertension, we will continue the patient's metoprolol. Her losartan is going to be held. We will also continue amlodipine. 4. For obstructive sleep apnea, the patient is going to be placed on CPAP nightly. 5. For DVT prophylaxis, the patient is low risk and preop and ambulation is going to be encouraged. TIME SPENT: Approximately 65 minutes was spent on consultation of this patient and more than half that time was spent [id number] with the patient during the interview and physical exam. [id number]/[facility] #: [id number] [facility]
[2018-09-15] MEDS: amLODIPine TAB* 5 MG PO SCH (20:51)
[2018-09-15] MEDS: Insulin LISPRO* 1 UNITS UNIT SUBCUT SCH (20:55)
[2018-09-16] MEDS: NS 0.9% 1000 ML** 1,000 ML IV SCH (03:56)
[2018-09-16] MEDS ORDERED: Famotidine IV* 10 MG/ML 2 ML (20 mg) IV ONE (06:00)
[2018-09-16] MEDS ORDERED: NS 0.9% 1000 ML** 1,000 ML IV SCH (06:00)
[2018-09-16] MEDS ORDERED: DiMENhydriNATE IV* 50 MG/ML VIAL IV PUSH ONE (06:00)
[2018-09-16 06:16] LABS: Urine Appearance Clear; Urine Bilirubin Negative (Negative); Urine Blood Negative (Negative); Urine Color Straw; Urine Glucose Negative (Negative); Urine Ketones Negative (Negative); Urine Nitrite Negative (Negative); Urine Protein Negative (Negative); Urine Specific Gravity 1.003 (1.010-1.030); Urine Urobilinogen Negative (Negative)
[2018-09-16 07:07] LABS: BUN/Creatinine Ratio 14.3 (8-20); Calcium 9.2 mg/dL (8.6-10.3); EGFR African American 76.6 (>60); EGFR Non-African American 63.3 (>60); Potassium 4.7 mmol/L (3.5-5.0)
[2018-09-16] MEDS: Insulin LISPRO* 1 UNITS UNIT SUBCUT SCH ×4 (07:21→18:43)
[2018-09-16] MEDS: amLODIPine TAB* 5 MG PO SCH (07:53)
[2018-09-16] MEDS ORDERED: Metoprolol Tartrate TAB* 100 MG TAB PO SCH (09:00)
[2018-09-16] MEDS ORDERED: CMCS:Rosuvastatin (NF) 5 MG TAB PO SCH (09:00)
[2018-09-16] MEDS ORDERED: Sertraline* 50 MG TAB PO SCH (09:00)
[2018-09-16] MEDS ORDERED: NON FORMULARY MED* (Losartan Potassium [Losartan Potassium] 100 MG) PO SCH (09:00)
[2018-09-16] MEDS ORDERED: Famotidine IV* 10 MG/ML 2 ML (20 mg) ONE (09:12)
[2018-09-16] MEDS ORDERED: Heparin VIAL(*) 5000 UNITS/ML VIAL (FIVE THOUSAND) ONE (09:12)
[2018-09-16] MEDS ORDERED: DiMENhydriNATE IV* 50 MG/ML VIAL ONE (09:12)
[2018-09-16] MEDS ORDERED: ceFAZolin 1 GM ADVAN(*) 1 GM ADDV.VIAL IVPB ONE (09:12)
[2018-09-16] MEDS ORDERED: ceFAZolin 2 GM PREMIX in ORs 2 GM/50 ML BAG IVPB ONE (09:13)
[2018-09-16] MEDS ORDERED: Clindamycin 900 MG/D5W BAG(*) 900 MG/50 ML BAG IVPB ONE (09:13)
--- NOTE | 2018-09-16 09:17 | PN ---
Subjective Date of Service: 09/16/18 Interval History: Pt was consulted by hospitalist group for hyponatremia. She states she feels well and is ready for her surgery today. She has been on 2 weeks liquid diet of broth, V8, and shakes. She denies CP, SOB, muscle aches, forgetfulness, abdominal pain, n/v/d, muscle or joint aches. Objective Active Medications: Amlodipine Besylate (Norvasc Tab*) 5 mg PO QAM MIKAYLA Dextrose (D50w Syringe 50 Ml*) 12.5 gm IV PUSH .FOR FS < 60 - SS PRN Fluticasone Propionate (Flonase Nasal [place] 50mcg*) 2 spray BOTH NARES DAILY PRN Sodium Chloride (Ns 0.9% 1000 Ml*) 1,000 mls @ 100 mls/hr IV PER RATE MIKAYLA Insulin Human Lispro (Humalog*) 0 units SUBCUT ACHS MIKAYLA; Protocol Ipratropium [place] (Atrovent 0.5 Mg Neb.Connie*) 0.5 mg INH DAILY PRN Latanoprost (Xalatan 0.005%*) 1 drop BOTH EYES QPM [facility] Metoprolol Tartrate (Lopressor Tab*) 50 mg PO QPM MI[facility] Metoprolol Tartrate (Lopressor Tab*) 100 mg PO QAM [facility] Nitroglycerin (Nitroglycerin Tab 0.4 Mg*) 0.4 mg SL Q5M PRN Rosuvastatin Calcium (Crestor (Nf)) 5 mg PO QAM MI[facility]AYLA; Protocol Sertraline HCl (Zoloft*) 50 mg PO QAM MIKAYLA Vital Signs: Temp Pulse Resp BP Pulse Ox 97.8 F 72 18 136/66 97 09/16/18 07:53 09/16/18 07:53 09/16/18 08:00 09/16/18 07:53 09/16/18 07:53 Oxygen Devices in Use Now: None Appearance: Pt is up and ambulating; she is in no acute distress. Eyes: No Scleral Icterus, PERRLA Ears/Nose/Mouth/Throat: NL Teeth, Lips, Gums, Clear Oropharnyx, Mucous Membranes Moist Neck: NL Appearance and Movements; NL JVP, Trachea Midline Respiratory: Symmetrical Chest Expansion and Respiratory Effort, Clear to Auscultation Cardiovascular: RRR, No Edema, - - Systolic murmur noted on auscultation Abdominal: NL Sounds; No Tenderness; No Distention, No Hepatosplenomegaly Extremities: No Edema, No Clubbing, Cyanosis Neurological: Alert and Oriented x 3, NL Gait Result Diagrams: 09/16/18 06:42 Assess/Plan/Problems-Billing Assessment: Pt is a 58of with PMHx obesity, DM, HTN, CAD, carotid stenosis AGNES, HLD, depression and anxiety who was admitted and consulted for pre-op hyponatremia. She is scheduled to have a gastric bypass today. - Patient Problems (1) Obesity (BMI 30-39.9) Comment: -Planned for gastric bypass today -Management per surgery (2) Hyponatremia Comment: -Improved with IVF; currently mildly hyponatremic at 129 -Reassess tomorrow (3) Diabetes mellitus, type II Comment: -Sliding scale (4) HTN (hypertension) Comment: -Stable -Continue metoprolol, amlodipine (5) AGNES (obstructive sleep apnea) Comment: -CPAP nightly (6) DVT prophylaxis Comment: -Continue to encourage ambulation (7) Full code status Status and Disposition: Inpatient. Dispo per surgery.
[2018-09-16] MEDS ORDERED: fentaNYL* 50 MCG/ML 2 ML VIAL (100 MCG VIAL) ONE ×3 (09:31→14:36)
[2018-09-16] MEDS ORDERED: Midazolam* 1 MG/ML 2 ML VIAL (2 MG) ONE (09:31)
[2018-09-16] MEDS ORDERED: Rocuronium* 10 MG/ML VIAL ONE (09:33)
[2018-09-16] MEDS ORDERED: Propofol* 10 MG/ML 20 ML BTL ONE (09:34)
[2018-09-16] MEDS ORDERED: Lidocaine 2% PF * 5 ML VIAL ONE (09:34)
[2018-09-16] MEDS ORDERED: Bupivacaine 0.25% W/EPI* 10 ML SDV ONE (10:29)
[2018-09-16] MEDS ORDERED: HYDROmorphone INJ1* 1 MG/ML SYRINGE IV PRN ×2 (12:02→13:18)
[2018-09-16] MEDS ORDERED: Naloxone* 0.4 MG/ML 1 ML VIAL IV PRN (12:02)
[2018-09-16] MEDS ORDERED: EPHEDrine (Pressors)* 50 MG/ML VIAL ONE (12:12)
[2018-09-16] MEDS ORDERED: Phenylephrine INJ* 10 MG/ML 1 ML VIAL (10 MG) ONE (12:13)
[2018-09-16] MEDS ORDERED: Ondansetron INJ* 2 MG/ML VIAL ONE (12:33)
[2018-09-16] MEDS ORDERED: Ondansetron INJ* 2 MG/ML VIAL IV PRN (13:12)
[2018-09-16] MEDS ORDERED: HYDROcodone/ACET. 7.5/325 LIQ* 15 ML UDC PO PRN (13:12)
[2018-09-16] MEDS ORDERED: Acetaminophen ADULT LIQ* 650 MG/20.3 ML UDC PO PRN (13:12)
[2018-09-16] MEDS ORDERED: Albuterol HFA INHALER* 8 gm MDI INH PRN (13:22)
--- NOTE | 2018-09-16 13:28 | OP ---
Operative Report - Blank - Operative Report Date of Operation: 09/16/18 Note: Brief Operative Note Preop Dx: Morbid obesity Postop Dx: same; and ventral hernia Procedure: Laparoscopic sleeve gastrectomy; lysis of adhesions; repair ventral hernia Anesthesia: GET Surgeon: Oswaldo [facility] Coordinator: ELVER Scott; YVONNE Holguin Fluids: 1300 ml RL EBL: 50 ml Specimen: portion of stomach Drains: none Findings: dictated
[2018-09-16] MEDS: fentaNYL* 50 MCG/ML 2 ML VIAL (100 MCG VIAL) IV PRN ×3 (13:45→14:39)
[2018-09-16] MEDS: Lactated Ringers 1000 ML Bag* 1,000 ML IV SCH ×2 (15:39→22:09)
[2018-09-16] MEDS: Ketorolac INJ* 30 MG/ML 1 ML VIAL IV PRN ×2 (15:40→21:54)
[2018-09-16 16:47] LABS: EGFR African American 85.1 (>60); EGFR Non-African American 70.4 (>60)
[2018-09-16] MEDS: Heparin VIAL(*) 5000 UNITS/ML VIAL (FIVE THOUSAND) SUBCUT SCH ×2 (16:57→21:51)
[2018-09-16] MEDS: Metoprolol Tartrate IV* 1 MG/ML 5 ML VIAL IV SCH ×2 (16:58→21:59)
[2018-09-16] MEDS: Latanoprost 0.005%* 2.5 ml BTL BOTH EYES SCH (18:12)
[2018-09-16] MEDS: Mometasone/Formoter 200/5 MDI INH SCH (19:28)
[2018-09-16] MEDS: Famotidine IV* 10 MG/ML 2 ML (20 mg) IV SLOW PU SCH (21:48)
--- NOTE | 2018-09-16 22:47 | OP ---
CC: Naveen Arana MD; [facility]; Kenn Mcleod MD * DATE OF OPERATION: 09/16/18 - ROOM #353 DATE OF : 58 SURGEON: Dr. Chacon. CHAIR CAR ATTENDANT: ELVER Dewey. ANESTHESIOLOGIST: Dr. Cisneros. ANESTHESIA: General endotracheal. PRE-OP DIAGNOSIS: Clinically severe obesity. POST-OP DIAGNOSIS: Clinically severe obesity. OPERATIVE PROCEDURE: Laparoscopic sleeve gastrectomy with lysis of adhesions and primary repair of ventral hernia. ESTIMATED BLOOD LOSS: 50 mL. IV FLUIDS: 1.2 L crystalloid. SPECIMEN: Portion of stomach. DRAINS: None. COMPLICATIONS: None. COUNTS: The instrument, needle, and sponge counts were correct. DESCRIPTION OF PROCEDURE: The patient was brought to the operating room and placed on the table supine. Sequential compression devices were placed on both lower extremities. General anesthesia was administered. She was prepped and padded appropriately. She was administered appropriate intravenous antibiotics and she was prepped and draped in the usual sterile fashion and time-out was performed. Local anesthetic was infiltrated into the skin and soft tissue prior to making each incision. Entry to the abdomen was through a left upper quadrant incision accommodating a 5 mm optical trocar. After accessing the peritoneal cavity, carbon dioxide was insufflated to a pressure of 15 mmHg. Upon introduction of the laparoscope, there were noted to be numerous adhesions in the midline extending to the left upper quadrant. This appeared to be of omentum. A 5 mm trocar was placed in the left upper quadrant laterally and then between the 2 ports, dissection was performed using a combination of LigaSure, sharp and blunt dissection to free the anterior abdominal wall off the omental adhesions. The previously placed intraperitoneal mesh was noted and at the right upper quadrant at the border of the mesh at the inferior aspect, there was noted to be a 4 cm defect in the fascia with omentum protruding through this. The omentum was entirely reduced. Next, the 12 mm trocars were placed, one in the right upper quadrant, one in the midline supraumbilically and the Fátima liver retractor was placed percutaneously in the subxiphoid position and used to the elevate the left lobe of the liver. The stomach was decompressed with an orogastric tube and then this was removed. The gastric anatomy appeared normal, although the stomach did appear to be quite large. There was some scarring in the area of the cardia of the stomach noted from the patient's history of prior gastric band placement. Perigastric dissection was undertaken on the greater curvature to skeletonize the greater curvature of all vessels using the LigaSure. This was extended proximally up to the gastroesophageal junction and distally to approximately 6 cm proximal to the pylorus. A 40-Venezuelan bougie was then passed into the stomach and a sleeve gastrectomy was performed over the 40-[place]an bougie using serial firings of the EndoGIA stapler with reinforced purple cartridges. The staple lines were inspected, noted to be intact and hemostasis was excellent. The specimen was placed into a retrieval bag and it was decided to retrieve this through the ventral hernia that had previously been identified. First, local anesthetic was infiltrated into the skin and soft tissue in the site over the palpable hernia defect and then a transverse incision was created. The bag was retrieved with a specimen through the defect and then the defect itself was prepared by dissecting out the hernia sac and then closure was performed with interrupted [id number] Prolene sutures. The superior bites of suture incorporated the mesh that was present there. In this fashion, the hernia defect was closed. Subsequently, pneumoperitoneum was reestablished and the abdomen was inspected for hemostasis, which was excellent. The bougie had been removed without any difficulty. At this point, the ports were removed under direct visualization and carbon dioxide was released. The incisions were all closed with 4-0 Monocryl in a subcuticular fashion and Steri-Strips were applied. The patient tolerated this procedure well. She was extubated and transferred to the recovery room in stable condition. [id number]/[facility] #: [id number] MTDD
[2018-09-17] MEDS: Insulin LISPRO* 1 UNITS UNIT SUBCUT SCH ×3 (00:25→12:14)
[2018-09-17] MEDS: HYDROmorphone INJ* 0.5 MG/0.5 ML SYRINGE IV PRN ×2 (03:08→07:39)
[2018-09-17] MEDS: Metoprolol Tartrate IV* 1 MG/ML 5 ML VIAL IV SCH ×2 (03:19→08:49)
[2018-09-17] MEDS: Lactated Ringers 1000 ML Bag* 1,000 ML IV SCH (04:45)
[2018-09-17] MEDS: Heparin VIAL(*) 5000 UNITS/ML VIAL (FIVE THOUSAND) SUBCUT SCH ×2 (05:57→13:53)
[2018-09-17] MEDS: Famotidine IV* 10 MG/ML 2 ML (20 mg) IV SLOW PU SCH (07:32)
[2018-09-17 08:39] LABS: EGFR African American 95.7 (>60); EGFR Non-African American 79.1 (>60)
[2018-09-17] MEDS: Mometasone/Formoter 200/5 MDI INH SCH (08:49)
--- NOTE | 2018-09-17 08:50 | PN ---
Subjective Date of Service: 09/17/18 Interval History: Pt is doing well. She is very eager to go home today. She states that she is having heartburn and a small amount of abdominal pain. She also states that her blood pressure has been elevated at times. She denies CP, SOB, fever, n/v/ d. She states that she has passes a very small amount of flatus and that she had a small bowel movement overnight. Objective Active Medications: Acetaminophen (Tylenol Adult Liq*) 650 mg PO Q6H PRN Hydrocodone Bitart/Acetaminophen (Nortab 7.5/325 Liq*) 15 ml PO Q6H PRN Albuterol (Ventolin Hfa Inhaler*) 2 puff INH Q4H PRN Dextrose (D50w Syringe 50 Ml*) 12.5 gm IV PUSH .FOR FS < 60 - SS PRN Fluticasone Propionate (Flonase Nasal [place] 50mcg*) 2 spray BOTH NARES DAILY PRN Heparin Sodium (Porcine) (Heparin Vial(*)) 5,000 units SUBCUT Q8HR MIKAYLA Hydromorphone HCl (Dilaudid Inj*) 0.5 mg IV Q3H PRN Hydromorphone HCl (Dilaudid Inj1s*) 1 mg IV Q3H PRN Potassium Chloride/Dextrose (D5w 1/2 Ns Kcl 20 Meq 1000 Ml*) 1,000 mls @ 125 mls/hr IV PER RATE MIKAYLA Lactated Ringer's (Lactated Ringers 1000 Ml Bag*) 1,000 mls @ 150 mls/hr IV PER RATE MIKAYLA Insulin Human Lispro (Humalog*) 0 units SUBCUT Q6H MIKAYLA; Protocol Ipratropium [place] (Atrovent 0.5 Mg Neb.Connie*) 0.5 mg INH DAILY PRN Ketorolac Tromethamine (Toradol Inj*) 30 mg IV Q6H PRN Latanoprost (Xalatan 0.005%*) 1 drop BOTH EYES QPM MIKAYLA Metoprolol Tartrate (Lopressor Iv*) 10 mg IV Q6H MIKAYLA Mometasone Furoate/Formoterol Fumar (Dulera 200/5 Mdi*) 2 puff INH BID MIKAYLA; Protocol Nitroglycerin (Nitroglycerin Tab 0.4 Mg*) 0.4 mg SL Q5M PRN Ondansetron HCl (Zofran Inj*) 4 mg IV Q6H PRN Pantoprazole Sodium (Protonix Iv*) 40 mg IV DAILY MIKAYLA Vital Signs - 8 hr 09/17/18 09/17/18 09/17/18 03:08 03:20 04:10 Temperature 97.9 F Pulse Rate 95 Respiratory 20 20 18 Rate Blood Pressure 128/72 (mmHg) O2 Sat by Pulse 93 Oximetry 09/17/18 09/17/18 09/17/18 04:36 07:37 07:39 Temperature 97.9 F Pulse Rate 86 Respiratory 16 18 Rate Blood Pressure 151/77 (mmHg) O2 Sat by Pulse 93 96 Oximetry 09/17/18 08:00 Temperature Pulse Rate Respiratory 18 Rate Blood Pressure (mmHg) O2 Sat by Pulse 96 Oximetry Oxygen Devices in Use Now: None Appearance: Pt is standing in her room, in no acute distress. She is cooperative and appropriate. Eyes: No Scleral Icterus, PERRLA Ears/Nose/Mouth/Throat: NL Teeth, Lips, Gums, Clear Oropharnyx, Mucous Membranes Moist Neck: NL Appearance and Movements; NL JVP, Trachea Midline Respiratory: Symmetrical Chest Expansion and Respiratory Effort, Clear to Auscultation Cardiovascular: RRR, No Edema, - - Systolic murmur Abdominal: - - Bowel sounds in all quadrants Extremities: No Edema, No Clubbing, Cyanosis Neurological: Alert and Oriented x 3, NL Gait Result Diagrams: 09/17/18 06:55 Assess/Plan/Problems-Billing Assessment: Pt is a 58of with PMHx obesity, DM, HTN, CAD, carotid stenosis AGNES, HLD, depression and anxiety who was admitted and consulted for pre-op hyponatremia. She is scheduled to have a gastric bypass today. - Patient Problems (1) Obesity (BMI 30-39.9) Comment: -POD 1 bariatric surgery -Management and discharge per surgery (2) Hyponatremia Comment: -Improved with IVF; currently 134 (3) HTN (hypertension) Comment: -Elevated first few hours post-op (up to 175 SBP), and then normalized. Since then, high has been 151 SBP. -Continue metoprolol -Restart amlodipine once pt is able to take PO (4) Depression Comment: -Continue home medications once tolerating PO (5) Diabetes mellitus, type II Comment: -Sliding scale (6) AGNES (obstructive sleep apnea) Comment: -CPAP nightly (7) DVT prophylaxis Comment: -Continue to encourage ambulation (8) Full code status Status and Disposition: Inpatient. Dispo per surgery.
[2018-09-17] MEDS ORDERED: Pantoprazole IV* 40 MG IV SCH (09:00)
[2018-09-17] MEDS: Ketorolac INJ* 30 MG/ML 1 ML VIAL IV PRN (09:08)
--- NOTE | 2018-09-17 09:51 | PN ---
Progress Note - Progress Note Date of Service: 09/17/18 SOAP: Subjective:POD#1 S/P LAP SLEEVE AND REPAIR VENTRAL HERNIA ambulating;started clears;minimal pain;wearing binder [] Objective: Vital Signs Temp 97.9 F 09/17/18 07:37 Pulse 86 09/17/18 07:37 Resp 18 09/17/18 08:45 BP 151/77 09/17/18 07:37 Pulse Ox 96 09/17/18 08:00 Intake & Output 09/16/18 09/17/18 09/17/18 18:59 06:59 18:59 Intake Total 1550 1879 Output Total 1200 2200 Balance 350 -321 Intake: IV Fluids 1550 1879 CEFAZOLIN 3G 100 CLINDAMYCIN 900MG 50 LR 1879 NS 1400 Oral 0 Output: Urine 1200 2200 Other: # Bowel Movements 0 lungs:clear bilat;heart:RRR;abd:+bs,large,soft;incisions intact with dressings, no erythema;ext:nontender calves [] Assessment:doing well pod #1 [] Plan:monitor po intake inspiron ambulate possible discharge home this afternoon []
[2018-09-17 13:17] VITALS: BP 137/69
[2018-09-17] MEDS ORDERED: D5W 1/2 NS KCl 20 Meq 1000 ML* 1,000 ML IV SCH (13:18)
--- NOTE | 2018-09-19 10:27 | DS ---
CC: Dr. Naveen Arana; [facility].* DISCHARGE SUMMARY: DATE OF ADMISSION: 09/15/18 DATE OF DISCHARGE: 09/17/18 DISCHARGE DIAGNOSES: 1. Clinically severe obesity. 2. Type 2 diabetes. 3. Obstructive sleep apnea. 4. Hypertension. 5. Cardiovascular disease. 6. Asthma. 7. Depression. 8. Anxiety. 9. Hyperlipidemia. 10. Gastroesophageal reflux disease. 11. Glaucoma. 12. Hyponatremia. PROCEDURES: Laparoscopic sleeve gastrectomy with lysis of adhesions and primary repair of ventral hernia performed on 09/16/18. HOSPITAL COURSE: This is a 58-year-old female with above mentioned illnesses who presented for elective bariatric surgery on 09/16/18. She was admitted, brought to the operating room, and underwent the above procedure. The patient was admitted on 09/15/18 in preparation for elective surgery on 09/16/18 due to presence of hyponatremia identified on preoperative laboratory testing. Upon admission, a consultation was obtained with hospitalist service. The patient was managed with normal saline hydration and by the following day, her hyponatremia had improved from 122 to 129. At this point, it was felt, she was appropriate for surgery and she was taken to the operative room. Please refer to the admission history and physical as well as the operative report for full details. Postoperatively, the patient did well and on postoperative day #1, she was advanced in her diet, was tolerating clear liquids well, had minimal pain, and was subsequently felt appropriately for discharge. She was discharged in the afternoon of 09/17/18. At that time, no laboratory tests were pending and her discharge medications were hydrocodone with acetaminophen 7.5/325 per 15 mL, 15 mL p.o. q.4 hours p.r.n. for pain, clonazepam 2 mg twice daily as needed, Zetia 10 mg once daily, amlodipine 5 mg every morning, omeprazole 20 mg every morning, fenofibrate 120 mg every morning, losartan 100 mg oral every morning, multivitamin every morning, iron every other day, sertraline 50 mg every morning, Crestor 5 mg every morning, vitamin D3 1000 units every morning, metoprolol 50 mg every evening and metoprolol 100 mg every morning, Xalatan 0.005% one drop both eyes every evening, albuterol inhaler 1 to 2 puffs every 4 hours as needed, fluticasone nasal spray 50 mcg 2 sprays both naris every day as needed, nitroglycerine 0.4 mg sublingual every 5 minutes as needed, Atrovent 0.5 mg/2.5 mL nebulizer every day p.r.n., Symbicort 2 puffs daily. The pathology was benign gastric tissue with fundic gland polyps and no significant pathologies. [id number]/[facility] #: [id number] [facility]
== END 2018-09-17 15:00 | disposition home or self-care (01) | DRG 403 ==
LOC: INTOOBSV 16:44 → SSU 16:44 → OBSVTOIN 09-16 13:12
PROVIDERS: ADMIT Surgery; ATTEND Surgery
PROC: 0WQF4ZZ Repair Abdominal Wall, Percutaneous Endoscopic Approach (ICD-10-PCS; 2018-09-16)
PROC: 0DNU4ZZ Release Omentum, Percutaneous Endoscopic Approach (ICD-10-PCS; 2018-09-16)
PROC: 0DB64Z3 Excision of Stomach, Percutaneous Endoscopic Approach, Vertical (ICD-10-PCS; principal; 2018-09-16 10:30)
DX: E66.01 Morbid (severe) obesity due to excess calories (principal); E87.1 Hypo-osmolality and hyponatremia; K43.9 Ventral hernia without obstruction or gangrene; Z68.41 Body mass index [BMI] 40.0-44.9, adult; J45.909 Unspecified asthma, uncomplicated; E11.65 Type 2 diabetes mellitus with hyperglycemia; G47.30 Sleep apnea, unspecified; I25.10 Atherosclerotic heart disease of native coronary artery without angina pectoris; G47.33 Obstructive sleep apnea (adult) (pediatric); I11.9 Hypertensive heart disease without heart failure; F32.9 Major depressive disorder, single episode, unspecified; F41.9 Anxiety disorder, unspecified; E78.5 Hyperlipidemia, unspecified; K66.0 Peritoneal adhesions (postprocedural) (postinfection); K21.9 Gastro-esophageal reflux disease without esophagitis; H40.9 Unspecified glaucoma; Z79.84 Long term (current) use of oral hypoglycemic drugs; Z79.82 Long term (current) use of aspirin; Z79.899 Other long term (current) drug therapy; Z91.040 Latex allergy status; Z88.8 Allergy status to other drugs, medicaments and biological substances; Z91.048 Other nonmedicinal substance allergy status; Z82.3 Family history of stroke; Z80.0 Family history of malignant neoplasm of digestive organs; Z87.891 Personal history of nicotine dependence; Z98.84 Bariatric surgery status
CPT/HCPCS: 36415; 43775; 80048; 81003; 82565; 83935; 84300; 85730; 88307; 94640; 94660; 96374; 96375; 96376; A9270-GY; G0378; J0690; J1170; J1240; J1644; J1885; J2250; J2405; J2704; J3010; J3490

== ENCOUNTER 2018-09-18 14:37 | Observation (INO) | payer BC, MEDICARE ==
[2018-09-18] MEDS ORDERED: Ondansetron INJ* 2 MG/ML VIAL IV PRN (15:01)
[2018-09-18] MEDS ORDERED: Nitroglycerin TAB 0.4 MG* 0.4 MG TAB SL PRN (15:09)
[2018-09-18] MEDS ORDERED: HYDROcodone/ACET. 7.5/325 LIQ* 15 ML UDC PO PRN (15:15)
[2018-09-18] MEDS ORDERED: Acetaminophen ADULT LIQ* 650 MG/20.3 ML UDC PO PRN (15:21)
[2018-09-18 15:45] LABS: ABS Basophils 0 10^3/ul (0-0.2); ABS Eosinophils 0.1 10^3/ul (0-0.6); ABS Lymphocytes 1.7 10^3/ul (1.0-4.8); ABS Monocytes 0.8 10^3/ul (0-0.8); ABS Neutrophils 10.5 10^3/ul (1.5-7.7); ABS Nucleated RBC 0 10^3/ul; Eosinophil % 0.5 %; Hematocrit 37 % (35-47); Hemoglobin 12.8 g/dl (12.0-16.0); Mean Corpuscular HGB Conc 34 g/dl (31-36); Mean Corpuscular Hemoglobin 30 pg (27-31); Mean Corpuscular Volume 87 fL (80-97); Mean Platelet Volume 6.6 fL (7.4-10.4); Nucleated Red Blood Cells % 0.1; Platelet Count 399 10^3/ul (150-450); Red Blood Count 4.32 10^6/ul (4.00-5.40); Red Cell Distribution Width 14 % (10.5-15)
[2018-09-18 16:09] LABS: Albumin 4.4 g/dL (3.2-5.2); Albumin/Globulin Ratio 1.5 (1-3); BUN/Creatinine Ratio 10.4 (8-20); Calcium 9.4 mg/dL (8.6-10.3); EGFR African American 58.4 (>60); EGFR Non-African American 48.3 (>60); Potassium 4.1 mmol/L (3.5-5.0); Total Bilirubin 0.5 mg/dL (0.2-1.0); Total Protein 7.4 g/dL (6.4-8.9)
[2018-09-18] MEDS ORDERED: Lactated Ringers 1000 ML Bag* 1,000 ML IV SCH (17:00)
[2018-09-18] MEDS: Pantoprazole IV* 40 MG IV SCH (17:25)
[2018-09-18] MEDS ORDERED: Metoprolol Tartrate TAB* 50 mg PO SCH (18:00)
[2018-09-18] MEDS: Lactated Ringers 1000 ML Bag* 1,000 ML IV SCH (18:16)
[2018-09-18] MEDS ORDERED: ceFAZolin* 2 GM* ONE DOSE (Duplex) IVPB (20:15)
[2018-09-18] MEDS: Mometasone/Formoter 200/5 MDI INH SCH (20:17)
[2018-09-18] MEDS ORDERED: Midazolam* 1 MG/ML 2 ML VIAL (2 MG) ONE (20:20)
[2018-09-18] MEDS ORDERED: fentaNYL* 50 MCG/ML 5 ML VIAL (250 MCG VIAL) ONE (20:20)
--- NOTE | 2018-09-18 20:23 | PN ---
Progress Note - Progress Note Date of Service: 09/18/18 Note: Preop Note 58 yo F POD#2 s/p lap sleeve gastrectomy and SEN with primary repair of a RUQ ventral hernia also. She was discharged yesterday and seen for f/u today due to constipation and was sent for readmission. WBC=13k and AST/ALT elevated with mild incr Cr and low CO2. A CT abd/pel shows SB loop in a recurrent hernia. Findings d/w pt and I have recommended return to OR for surgical repair of ventral hernia, possible mesh. Nature of the procedure, indications, risks, benefits, alternatives, option of no treatment explained. Risks explained including, not limited to: bleeding, infection, pain, scarring, blood clots, pneumonia, visceral injury, N/V, and risk of GETA. All questions answered. She stated understanding and agrees to proceed.
[2018-09-18] MEDS ORDERED: ceFAZolin 2 GM PREMIX in ORs 2 GM/50 ML BAG IVPB ONE (20:27)
[2018-09-18] MEDS ORDERED: Docusate CAP* 100 MG PO SCH (21:00)
[2018-09-18] MEDS ORDERED: Rocuronium* 10 MG/ML VIAL ONE (21:04)
[2018-09-18] MEDS ORDERED: Lidocaine 2% PF * 5 ML VIAL ONE (21:20)
[2018-09-18] MEDS ORDERED: Phenylephrine INJ* 10 MG/ML 1 ML VIAL (10 MG) ONE (21:20)
[2018-09-18] MEDS ORDERED: Succinylcholine* 20 MG/ML 10 ML VIAL ONE (21:20)
[2018-09-18] MEDS ORDERED: Propofol* 10 MG/ML 20 ML BTL ONE (21:20)
[2018-09-18] MEDS ORDERED: PROCHLORPERAZINE INJ 5 MG/ML 2 ML VIAL IV PRN (21:23)
[2018-09-18] MEDS ORDERED: fentaNYL* 50 MCG/ML 2 ML VIAL (100 MCG VIAL) IV PRN (21:23)
[2018-09-18] MEDS ORDERED: Ketorolac INJ* 30 MG/ML 1 ML VIAL IV PRN (21:23)
[2018-09-18] MEDS ORDERED: HYDROmorphone INJ1* 1 MG/ML SYRINGE IV PRN ×2 (21:23→21:52)
[2018-09-18] MEDS ORDERED: DiMENhydriNATE IV* 50 MG/ML VIAL IV PUSH PRN (21:23)
[2018-09-18] MEDS ORDERED: Naloxone* 0.4 MG/ML 1 ML VIAL IV PRN (21:23)
[2018-09-18] MEDS ORDERED: Acetaminophen IV 1GM/100ML * 1,000 MG/100 ML VIAL IVPB ONE (21:23)
[2018-09-18] MEDS ORDERED: EPHEDrine (Pressors)* 50 MG/ML VIAL ONE (21:25)
[2018-09-18] MEDS ORDERED: Ondansetron INJ* 2 MG/ML VIAL ONE (21:27)
[2018-09-18] MEDS ORDERED: Bupivacaine 0.5%* 50 ML VIAL ONE (21:28)
[2018-09-18] MEDS ORDERED: Sugammadex * 500 MG/5 ML VIAL IV PUSH ONE (21:35)
[2018-09-19] MEDS: Lactated Ringers 1000 ML Bag* 1,000 ML IV SCH (04:30)
[2018-09-19] MEDS ORDERED: Sertraline* 50 MG TAB PO SCH (09:00)
[2018-09-19] MEDS ORDERED: amLODIPine TAB* 5 MG PO SCH (09:00)
[2018-09-19] MEDS ORDERED: Metoprolol Tartrate TAB* 100 MG TAB PO SCH (09:00)
[2018-09-19] MEDS ORDERED: Losartan TAB* 25 MG PO SCH (09:00)
[2018-09-19] MEDS: Mometasone/Formoter 200/5 MDI INH SCH (10:15)
[2018-09-19] MEDS: Pantoprazole IV* 40 MG IV SCH (10:19)
--- NOTE | 2018-09-19 10:44 | DS ---
CC: [facility]; Dr. Arana * DISCHARGE SUMMARY: DATE OF ADMISSION: 09/18/18 DATE OF DISCHARGE: 09/19/18 DISCHARGE DIAGNOSES: 1. Incarcerated ventral hernia, status post ventral hernia repair. 2. Status post sleeve gastrectomy and lysis of adhesions. 3. Clinically severe obesity. 4. Type 2 diabetes. 5. Hypertension. 6. Hyperlipidemia. 7. Asthma. 8. Constipation. 9. Abdominal pain. HOSPITAL COURSE: This is a 58-year-old female was readmitted 2 days postop from her elective laparoscopic sleeve gastrectomy with lysis of adhesions and primary repair of ventral hernia. The patient had been admitted for abdominal pain and constipation and upon further workup, was found to have disruption of her hernia repair site. The patient was taken emergently to the operating room on 09/18/18 and the incarcerated hernia was reduced. There was no need for bowel resection and the hernia was able to be closed primarily. The following day, the patient was passing flatus and bowel movement and tolerating liquids. Her pain was adequately controlled. She is felt to be stable for discharge home and is discharged home with instructions to follow up at [facility] in the coming week. She will resume her bariatric postoperative dietary recommendations. There is no laboratory pending. She is provided with printed instructions. [id number]/[facility] #: [id number] MTDRod
[2018-09-19 11:40] VITALS: BP 141/83
--- NOTE | 2018-09-19 11:42 | OP ---
: [facility]; Naveen Arana MD * DATE OF OPERATION: 09/18/18 - ROOM #347 DATE OF : 58 SURGEON: Dr. Chacon. DOCUMENTATION CLERK: Dr. Yanez. ANESTHESIOLOGIST: Dr. Andrade. ANESTHESIA: General endotracheal. PRE-OP DIAGNOSIS: Incarcerated ventral hernia. POST-OP DIAGNOSIS: Incarcerated ventral hernia. OPERATIVE PROCEDURE: Open reduction and repair of incarcerated ventral hernia. ESTIMATED BLOOD LOSS: Minimal. IV FLUIDS: Crystalloids. SPECIMEN: None. DRAINS: None. COMPLICATIONS: None. COUNTS: The instrument, needle, and sponge counts were correct. DESCRIPTION OF PROCEDURE: The patient was brought to the operating room and placed on the table supine. Sequential compression devices were placed on both lower extremities and general anesthesia was administered. Alex catheter was placed. She was positioned and padded appropriately. She was prepped and draped in the usual sterile fashion. Time-out was performed. The patient's right upper quadrant transverse incision was opened, removing the subcuticular sutures. Body fluid was forthcoming. Small bowel was found within the subcutaneous tissues emanating from a disrupted hernia repair. The Prolene sutures were removed. The fascia appeared to be intact; however, the sutures appeared to be undone. The bowel was able to be reduced within the abdominal cavity without difficulty. The repair was then performed in a primary fashion due to the presence of no tension. The repair was performed with interrupted figure-of- eight sutures of #1 Ethibond suture and in performing the closure, this incorporated the indwelling mesh at the cephalad aspect of the hernia. After completing the closure, the wound was irrigated copiously and then closed in two layers with a 2-0 Vicryl to close the subcutaneous tissues in order to decrease the space including taking purchase of the fascia and then the skin incision was closed with a 4-0 Monocryl in running subcuticular fashion. Dermaflex was applied to the wound. The patient tolerated this procedure well, was extubated, and transferred to Recovery in stable condition. [id number]/[facility] #: [id number] MTDD
== END 2018-09-19 12:19 | disposition home or self-care (01) ==
LOC: SSU 14:43
PROVIDERS: ADMIT Surgery; ATTEND Surgery
DX: K43.9 Ventral hernia without obstruction or gangrene (principal); Z98.84 Bariatric surgery status; E66.01 Morbid (severe) obesity due to excess calories; Z68.41 Body mass index [BMI] 40.0-44.9, adult; R10.815 Periumbilic abdominal tenderness; E11.9 Type 2 diabetes mellitus without complications; I10 Essential (primary) hypertension; E78.5 Hyperlipidemia, unspecified; J45.909 Unspecified asthma, uncomplicated; K59.00 Constipation, unspecified; R10.9 Unspecified abdominal pain; K56.0 Paralytic ileus
CPT/HCPCS: 36415; 74176; 76705; 80053; 85025; 96365; 96366; A9270-GY; G0378; J0330; J0690; J2250; J2405; J2704; J3010

== ENCOUNTER 2020-02-16 08:47 | Inpatient (IN) ==
[2020-02-16] MEDS ORDERED: Thiamine 100 MG/ML 2 ml VIAL 100 MG, Folic Acid 1 MG, Multiple Vitamin IV ADULT 10 ML i... IV ONE (09:10)
[2020-02-16] MEDS ORDERED: Ondansetron 4 mg VIAL 2 MG/ML 2 ml VIAL IV ONE (09:28)
[2020-02-16] MEDS ORDERED: NS 0.9% 1000 ml BAG 1,000 ML IV ONE (09:50)
[2020-02-16 09:52] LABS: ABS Lymphocytes 1.1 10^3/ul (1.0-4.8); ABS Monocytes 0.8 10^3/ul (0-0.8); Eosinophil % 0.7 %; Hematocrit 35 % (35-47); Lymphocyte % 17.2 %; Mean Corpuscular HGB Conc 34 g/dL (31-36); Mean Corpuscular Hemoglobin 28 pg (27-31); Mean Corpuscular Volume 82 fL (80-97); Mean Platelet Volume 6.7 fL (7.4-10.4); Nucleated Red Blood Cells % 0.1; Platelet Count 378 10^3/uL (150-450); Red Blood Count 4.31 10^6 /uL (3.70-4.87); Red Cell Distribution Width 14 % (10-15); White Blood Count 6.2 10^3/uL (3.5-10.8)
[2020-02-16 10:30] LABS: Albumin 4.8 g/dL (3.2-5.2); Albumin/Globulin Ratio 1.8 (1-3); BUN/Creatinine Ratio 7.8 (8-20); C Reactive Protein 10.67 mg/L (<8.01); Calcium 9.8 mg/dL (8.6-10.3); EGFR African American 114.5 (>60); EGFR Non-African American 94.7 (>60); Globulin 2.6 g/dL (2-4); Magnesium 1.5 mg/dL (1.9-2.7); Potassium 3.8 mmol/L (3.5-5.0); Total Bilirubin 0.4 mg/dL (0.2-1.0); Total Protein 7.4 g/dL (6.4-8.9)
[2020-02-16 10:55] LABS: T4, Total 11.08 mcg/dL (6.09-12.23)
[2020-02-16 10:59] LABS: TSH (Thyroid Stimulating Horm) 0.93 mcIU/mL (0.34-5.60)
[2020-02-16] MEDS ORDERED: Magnesium Sulfate 2 gm BAG 2 GM/50 ML BAG IVPB ONE (16:42)
[2020-02-16] MEDS: clonazePAM 1 mg TAB(*) PO SCH (20:50)
[2020-02-17 04:53] LABS: BUN/Creatinine Ratio 8.5 (8-20); Calcium 8.9 mg/dL (8.6-10.3); EGFR African American 101.6 (>60)
[2020-02-17] MEDS: clonazePAM 1 mg TAB(*) PO SCH ×2 (09:05→20:20)
[2020-02-17] MEDS: Aspirin EC 81 mg TAB.EC (enteric coated) PO SCH (09:06)
[2020-02-18 06:23] LABS: BUN/Creatinine Ratio 13.3 (8-20); Calcium 9.2 mg/dL (8.6-10.3); EGFR African American 38.4 (>60); EGFR Non-African American 31.7 (>60)
[2020-02-18] MEDS: clonazePAM 1 mg TAB(*) PO SCH ×2 (09:20→20:43)
[2020-02-18] MEDS: Aspirin EC 81 mg TAB.EC (enteric coated) PO SCH (09:22)
[2020-02-18 09:24] LABS: Calcium 9.5 mg/dL (8.6-10.3); Potassium 4.2 mmol/L (3.5-5.0)
[2020-02-18 09:29] LABS: BUN/Creatinine Ratio 14.6 (8-20); EGFR African American 40.4 (>60); EGFR Non-African American 33.4 (>60)
[2020-02-18] MEDS ORDERED: Thiamine 100 MG/ML 2 ml VIAL 500 MG in NS 0.9% 250 ml 250 ML IV ONE (10:56)
[2020-02-18] MEDS ORDERED: NS 0.9% 1000 ml BAG 1,000 ML IV ONE (10:59)
[2020-02-18 14:10] LABS: Urine Sodium Concentration < 18 mmol/L
[2020-02-18 16:03] LABS: BUN/Creatinine Ratio 14.5 (8-20); Calcium 9.1 mg/dL (8.6-10.3); EGFR African American 30.8 (>60); EGFR Non-African American 25.4 (>60); Potassium 3.9 mmol/L (3.5-5.0)
[2020-02-18] MEDS ORDERED: Dextrose 50% Syringe 50 ml 25 GM/50 ML SYRINGE IV PUSH PRN (16:07)
[2020-02-18] MEDS ORDERED: NS 0.9% 1000 ml BAG 1,000 ML IV SCH (16:15)
[2020-02-18 16:46] LABS: Urine Appearance Cloudy; Urine Bilirubin Negative (Negative); Urine Blood Negative (Negative); Urine Color Yellow; Urine Glucose Negative (Negative); Urine Ketones Negative (Negative); Urine Nitrite Negative (Negative); Urine Protein Negative (Negative); Urine Specific Gravity 1.014 (1.010-1.030); Urine Urobilinogen Negative (Negative)
[2020-02-18 16:56] LABS: Urine Bacteria Absent (Absent); Urine Red Blood Cell Absent (Absent); Urine Squamous Epithelial Cell Present (Absent); Urine Transitional Epithelial Present (Absent); Urine White Blood Cell 3+(>20/hpf) (Absent)
[2020-02-18] MEDS: Insulin LISPRO 100 units/ml(*) SUBCUT SCH (17:17)
[2020-02-18] MEDS ORDERED: cefTRIAXone 1 gm/50 mL NS BAG 1 GM/50 ML BAG IVPB SCH (18:00)
[2020-02-19 06:16] LABS: ABS Basophils 0.1 10^3/ul (0-0.2); ABS Eosinophils 0.1 10^3/ul (0-0.6); ABS Lymphocytes 1.7 10^3/ul (1.0-4.8); ABS Monocytes 0.6 10^3/ul (0-0.8); Eosinophil % 1.9 %; Hematocrit 32 % (35-47); Hemoglobin 10.8 g/dL (12.0-16.0); Mean Corpuscular HGB Conc 34 g/dL (31-36); Mean Corpuscular Hemoglobin 28 pg (27-31); Mean Corpuscular Volume 83 fL (80-97); Mean Platelet Volume 6.9 fL (7.4-10.4); Platelet Count 387 10^3/uL (150-450); Red Blood Count 3.82 10^6 /uL (3.70-4.87); Red Cell Distribution Width 14 % (10-15); White Blood Count 4.9 10^3/uL (3.5-10.8)
[2020-02-19 06:33] LABS: BUN/Creatinine Ratio 18.1 (8-20); Calcium 9.1 mg/dL (8.6-10.3); EGFR African American 64.7 (>60); EGFR Non-African American 53.5 (>60); Magnesium 1.6 mg/dL (1.9-2.7); Potassium 3.9 mmol/L (3.5-5.0)
[2020-02-19 07:48] VITALS: BP 136/60
[2020-02-19] MEDS ORDERED: Magnesium Sulfate 2 gm BAG 2 GM/50 ML BAG IVPB ONE (07:55)
[2020-02-19] MEDS: Insulin LISPRO 100 units/ml(*) SUBCUT SCH (08:17)
[2020-02-19] MEDS: Aspirin EC 81 mg TAB.EC (enteric coated) PO SCH (08:51)
[2020-02-19] MEDS: clonazePAM 1 mg TAB(*) PO SCH (08:51)
== END 2020-02-19 10:50 | disposition home health service (06) | DRG 422 ==
LOC: ED 08:47 → ICU 12:02 → MED 02-17 11:30
PROVIDERS: ADMIT Internal Medicine Critical Care Medicine; ATTEND Internal Medicine

== ENCOUNTER 2020-07-08 10:08 | Inpatient (IN) ==
[2020-07-08 11:14] LABS: ABS Basophils 0.1 10^3/ul (0-0.2); ABS Eosinophils 0.1 10^3/ul (0-0.6); ABS Lymphocytes 2.5 10^3/ul (1.0-4.8); ABS Monocytes 0.8 10^3/ul (0-0.8); ABS Neutrophils 6.2 10^3/ul (1.5-7.7); Hematocrit 33 % (35-47); Hemoglobin 11.4 g/dL (12.0-16.0); Lymphocyte % 25.9 %; Mean Corpuscular HGB Conc 34 g/dL (31-36); Mean Corpuscular Hemoglobin 26 pg (27-31); Mean Corpuscular Volume 76 fL (80-97); Mean Platelet Volume 6.9 fL (7.4-10.4); Platelet Count 525 10^3/uL (150-450); Red Blood Count 4.43 10^6 /uL (3.70-4.87); Red Cell Distribution Width 16 % (10-15); White Blood Count 9.7 10^3/uL (3.5-10.8)
[2020-07-08 11:21] LABS: Urine Appearance Clear; Urine Bilirubin Negative (Negative); Urine Blood Negative (Negative); Urine Color Colorless; Urine Glucose Negative (Negative); Urine Ketones Negative (Negative); Urine Nitrite Negative (Negative); Urine Protein Negative (Negative); Urine Specific Gravity 1.001 (1.010-1.030); Urine Urobilinogen Negative (Negative)
[2020-07-08 11:28] LABS: ALT 21 U/L (7-52); Albumin 4.5 g/dL (3.2-5.2); Albumin/Globulin Ratio 1.4 (1-3); Alkaline Phosphatase 89 U/L (34-104); BUN/Creatinine Ratio 12.4 (8-20); Blood Urea Nitrogen 11 mg/dL (6-24); CO2 Carbon Dioxide 18 mmol/L (22-32); Calcium 9.6 mg/dL (8.6-10.3); Chloride 91 mmol/L (101-111); EGFR African American 78.3 (>60); EGFR Non-African American 64.7 (>60); Globulin 3.3 g/dL (2-4); Glucose 173 mg/dL (70-100); Sodium 120 mmol/L (135-145); Total Protein 7.8 g/dL (6.4-8.9)
[2020-07-08 11:30] LABS: Anion Gap 11 mmol/L (2-11)
[2020-07-08] MEDS ORDERED: Albuterol HFA INHALER 8 gm MDI INH PRN (12:41)
[2020-07-08] MEDS ORDERED: Dextrose 50% Syringe 50 ml 25 GM/50 ML SYRINGE IV PUSH PRN (13:04)
[2020-07-08 13:38] LABS: BUN/Creatinine Ratio 10.1 (8-20); Calcium 10.3 mg/dL (8.6-10.3); EGFR Non-African American 51.2 (>60); Potassium 3.7 mmol/L (3.5-5.0)
[2020-07-08] MEDS ORDERED: UREA PO SCH (14:00)
[2020-07-08 14:27] LABS: TSH Ultra Thyroid Stim Horm 1.54 mcIU/mL (0.34-5.60)
[2020-07-08 17:30] LABS: BUN/Creatinine Ratio 12.4 (8-20); Calcium 9.7 mg/dL (8.6-10.3); EGFR African American 70.9 (>60); EGFR Non-African American 58.6 (>60); Potassium 4.2 mmol/L (3.5-5.0)
[2020-07-08] MEDS: URE NA PO SCH (17:30)
[2020-07-08] MEDS: Heparin 5000 UNITS/ML 1 mL VIAL SUBCUT SCH ×2 (17:31→22:35)
[2020-07-08 20:18] LABS: BUN/Creatinine Ratio 30.3 (8-20); Calcium 9.4 mg/dL (8.6-10.3); EGFR African American 69.2 (>60); EGFR Non-African American 57.2 (>60); Potassium 3.9 mmol/L (3.5-5.0)
[2020-07-08] MEDS: Latanoprost 0.005% 2.5 ml BTL BOTH EYES SCH (22:35)
[2020-07-09] MEDS: Heparin 5000 UNITS/ML 1 mL VIAL SUBCUT SCH ×3 (05:22→21:43)
[2020-07-09 08:18] LABS: BUN/Creatinine Ratio 18.4 (8-20); EGFR African American 80.4 (>60); EGFR Non-African American 66.4 (>60); Potassium 3.8 mmol/L (3.5-5.0)
[2020-07-09] MEDS: Vitamin THERAPEUTIC TAB PO SCH (09:51)
[2020-07-09] MEDS: Aspirin EC 81 mg TAB.EC (enteric coated) PO SCH (09:51)
[2020-07-09] MEDS: CMC: Rosuvastatin 10 mg TAB (NF) PO SCH (09:51)
[2020-07-09] MEDS: URE NA PO SCH (09:53)
[2020-07-09] MEDS: Fluticasone NASAL SPRAY 50MCG 16 gm SPRAY BTL BOTH NARES SCH (09:55)
[2020-07-09 15:40] LABS: BUN/Creatinine Ratio 29.1 (8-20); Calcium 9.7 mg/dL (8.6-10.3); EGFR African American 48.8 (>60); EGFR Non-African American 40.3 (>60)
[2020-07-09 19:01] LABS: BUN/Creatinine Ratio 24.8 (8-20); Calcium 9.2 mg/dL (8.6-10.3); EGFR African American 38.4 (>60); EGFR Non-African American 31.7 (>60); Potassium 3.6 mmol/L (3.5-5.0)
[2020-07-09] MEDS: Latanoprost 0.005% 2.5 ml BTL BOTH EYES SCH (20:01)
[2020-07-09] MEDS: CMCS: Oral Rinse (Biotene)(NF) 237 ML or 473 ML ORAL RINSE BTL MT PRN (21:43)
[2020-07-10] MEDS: Heparin 5000 UNITS/ML 1 mL VIAL SUBCUT SCH ×2 (05:55→12:26)
[2020-07-10] MEDS: CMCS: Oral Rinse (Biotene)(NF) 237 ML or 473 ML ORAL RINSE BTL MT PRN (06:00)
[2020-07-10 06:55] LABS: ABS Basophils 0.1 10^3/ul (0-0.2); ABS Eosinophils 0.1 10^3/ul (0-0.6); ABS Lymphocytes 2.4 10^3/ul (1.0-4.8); ABS Monocytes 0.8 10^3/ul (0-0.8); Eosinophil % 1.6 %; Hematocrit 33 % (35-47); Hemoglobin 10.8 g/dL (12.0-16.0); Mean Corpuscular HGB Conc 33 g/dL (31-36); Mean Corpuscular Hemoglobin 26 pg (27-31); Mean Corpuscular Volume 79 fL (80-97); Mean Platelet Volume 6.9 fL (7.4-10.4); Platelet Count 428 10^3/uL (150-450); Red Blood Count 4.21 10^6 /uL (3.70-4.87); Red Cell Distribution Width 15 % (10-15); White Blood Count 8.4 10^3/uL (3.5-10.8)
[2020-07-10 07:09] LABS: BUN/Creatinine Ratio 23.8 (8-20); Calcium 9.3 mg/dL (8.6-10.3); EGFR African American 52.4 (>60); EGFR Non-African American 43.3 (>60); Magnesium 1.9 mg/dL (1.9-2.7)
[2020-07-10 08:13] LABS: Potassium 4.1 mmol/L (3.5-5.0)
[2020-07-10] MEDS: Fluticasone NASAL SPRAY 50MCG 16 gm SPRAY BTL BOTH NARES SCH (09:35)
[2020-07-10] MEDS: Aspirin EC 81 mg TAB.EC (enteric coated) PO SCH (09:37)
[2020-07-10] MEDS: Vitamin THERAPEUTIC TAB PO SCH (09:37)
[2020-07-10] MEDS: CMC: Rosuvastatin 10 mg TAB (NF) PO SCH (09:37)
[2020-07-10 12:25] LABS: Calcium 9.2 mg/dL (8.6-10.3); Potassium 4.4 mmol/L (3.5-5.0)
[2020-07-10 12:27] VITALS: BP 157/100
[2020-07-10 12:31] LABS: BUN/Creatinine Ratio 22.4 (8-20); EGFR African American 48.8 (>60); EGFR Non-African American 40.3 (>60)
== END 2020-07-10 14:15 | disposition home or self-care (01) | DRG 425 ==
LOC: MEDTELE 10:08 → ED 10:08 → MEDTELE 15:08
PROVIDERS: ADMIT Internal Medicine; ATTEND Internal Medicine

== ENCOUNTER 2022-05-15 17:56 | Inpatient (IN) ==
[2022-05-15] MEDS ORDERED: Prochlorperazine 5 mg/ml 2 ml VIAL (10 mg) IV ONE (21:04)
[2022-05-15 21:31] LABS: ABS Monocytes 1.2 10^3/ul (0-0.8); ABS Neutrophils 10.1 10^3/ul (1.5-7.7); Hematocrit 39 % (35-47); Lymphocyte % 20.8 %; Mean Corpuscular HGB Conc 34 g/dL (31-36); Mean Corpuscular Hemoglobin 29 pg (27-31); Mean Corpuscular Volume 87 fL (80-97); Mean Platelet Volume 6.7 fL (7.4-10.4); Nucleated Red Blood Cells % 0.1; Platelet Count 441 10^3/uL (150-450); Red Cell Distribution Width 13 % (10-15); White Blood Count 14.3 10^3/uL (3.5-10.8)
[2022-05-15 22:20] LABS: ALT 18 U/L (7-52); AST 24 U/L (13-39); Albumin 4.7 g/dL (3.2-5.2); Albumin/Globulin Ratio 1.9 (1-3); Alkaline Phosphatase 69 U/L (35-149); Blood Urea Nitrogen 22 mg/dL (6-24); C Reactive Protein 5.64 mg/L (<8.01); CO2 Carbon Dioxide 20 mmol/L (22-32); Calcium 9.7 mg/dL (8.6-10.3); Chloride 82 mmol/L (101-111); Globulin 2.5 g/dL (2-4); Glucose 130 mg/dL (70-100); Lipase < 10 U/L (11.0-82.0); Magnesium 1.1 mg/dL (1.9-2.7); Potassium 3.8 mmol/L (3.5-5.0); Total Protein 7.2 g/dL (6.4-8.9); eGFR CKD-EPI 62.2 (>60)
[2022-05-15 22:24] LABS: Anion Gap 14 mmol/L (2-11); Sodium 116 mmol/L (135-145)
[2022-05-15] MEDS ORDERED: Iodixanol (CONTRAST) 320 MG/ML 100 ML SDV IV ONE (22:25)
[2022-05-16] MEDS ORDERED: Ondansetron 4 mg VIAL 2 MG/ML 2 ml VIAL IV PRN (00:48)
[2022-05-16] MEDS ORDERED: Dextrose 50% Syringe 50 ml 25 GM/50 ML SYRINGE IV PUSH PRN (01:15)
[2022-05-16 01:59] LABS: Osmolality Serum 256 mOsm/kg (275-295)
[2022-05-16] MEDS ORDERED: Magnesium Sulf 4 GM/100 ML IV 4,000 MG/100 ML BAG IVPB ONE (02:07)
[2022-05-16 02:48] LABS: Calcium 8.9 mg/dL (8.6-10.3); Potassium 3.4 mmol/L (3.5-5.0); eGFR CKD-EPI 67.7 (>60)
[2022-05-16] MEDS ORDERED: Potassium Chlor 20 meq TAB.ER PO ONE (02:59)
[2022-05-16] MEDS: Enoxaparin 40 MG/0.4 ML SYR SUBCUT SCH ×3 (03:08→22:33)
[2022-05-16 06:53] LABS: Calcium 9.2 mg/dL (8.6-10.3); Potassium 3.6 mmol/L (3.5-5.0); eGFR CKD-EPI 75.3 (>60)
[2022-05-16] MEDS: Aspirin EC 81 mg TAB.EC (enteric coated) PO SCH (08:16)
[2022-05-16] MEDS ORDERED: Ure-Na 15 GM POWD.PACK PO SCH (09:00)
[2022-05-16 09:14] LABS: Urine Appearance Clear; Urine Bilirubin Negative (Negative); Urine Blood Negative (Negative); Urine Color Straw; Urine Glucose Negative (Negative); Urine Ketones 1+ (15mg/dL) (Negative); Urine Nitrite Negative (Negative); Urine Protein Negative (Negative); Urine Specific Gravity <=1.005 (1.005-1.030); Urine Urobilinogen 0.2 (Negative) (Negative)
[2022-05-16 09:23] LABS: Urine Osmo 176 mOsm/kg (150-1150)
[2022-05-16] MEDS: Ure-Na 15 GM POWD.PACK PO SCH (11:02)
[2022-05-16] MEDS: Venlafaxine XR 75 mg PO SCH (11:02)
[2022-05-16] MEDS: Fluticasone NASAL SPRAY 50MCG 16 gm SPRAY BTL BOTH NARES SCH (11:06)
[2022-05-16 13:38] LABS: Free T4 1.46 ng/dL (0.61-1.12)
[2022-05-16] MEDS ORDERED: Latanoprost 0.005% 2.5 ml BTL BOTH EYES SCH (21:00)
[2022-05-17 06:11] LABS: ABS Lymphocytes 1.4 10^3/ul (1.0-4.8); ABS Monocytes 0.7 10^3/ul (0-0.8); ABS Neutrophils 5.3 10^3/ul (1.5-7.7); Eosinophil % 0.1 %; Hematocrit 34 % (35-47); Hemoglobin 11.4 g/dL (12.0-16.0); Lymphocyte % 18.5 %; Mean Corpuscular HGB Conc 34 g/dL (31-36); Mean Corpuscular Hemoglobin 30 pg (27-31); Mean Corpuscular Volume 87 fL (80-97); Mean Platelet Volume 6.7 fL (7.4-10.4); Nucleated Red Blood Cells % 0.1; Platelet Count 349 10^3/uL (150-450); Red Blood Count 3.85 10^6 /uL (3.70-4.87); Red Cell Distribution Width 13 % (10-15); White Blood Count 7.4 10^3/uL (3.5-10.8)
[2022-05-17 06:52] LABS: Calcium 8.8 mg/dL (8.6-10.3); Magnesium 1.8 mg/dL (1.9-2.7); Phosphorus 3.8 mg/dL (2.5-5.0); Potassium 3.9 mmol/L (3.5-5.0); eGFR CKD-EPI 75.3 (>60)
[2022-05-17] MEDS ORDERED: Magnesium Sulfate IV 1GM/100ML 1 GM/100 ML BAG IV ONE (07:39)
[2022-05-17] MEDS: Ure-Na 15 GM POWD.PACK PO SCH (08:57)
[2022-05-17] MEDS: Venlafaxine XR 75 mg PO SCH (08:57)
[2022-05-17] MEDS: Fluticasone NASAL SPRAY 50MCG 16 gm SPRAY BTL BOTH NARES SCH (08:58)
[2022-05-17] MEDS: Aspirin EC 81 mg TAB.EC (enteric coated) PO SCH (08:58)
[2022-05-17 12:06] VITALS: BP 150/73
== END 2022-05-17 12:00 | disposition home or self-care (01) | DRG 425 ==
LOC: ED 17:56 → EDHOLD 05-16 00:48 → ICU 05-16 01:10
PROVIDERS: ADMIT Student in an Organized Health Care Education/Training Program; ATTEND Student in an Organized Health Care Education/Training Program

== ENCOUNTER 2022-05-17 15:46 | Inpatient (IN) ==
[2022-05-17] MEDS ORDERED: levETIRAcetam 1000MG IVPREMIX 1,000 MG/100 ML BAG IVPB ONE ×2 (16:11→17:32)
[2022-05-17] MEDS ORDERED: LORazepam 2 mg VIAL 1 ml ONE (16:26)
[2022-05-17 17:16] LABS: Albumin 4.2 g/dL (3.2-5.2); Calcium 9.4 mg/dL (8.6-10.3); Magnesium 2.5 mg/dL (1.9-2.7); Total Bilirubin 0.5 mg/dL (0.2-1.0)
[2022-05-17 17:22] LABS: Albumin/Globulin Ratio 1.6 (1-3); Globulin 2.6 g/dL (2-4); Total Protein 6.8 g/dL (6.4-8.9); eGFR CKD-EPI 46.9 (>60)
[2022-05-17 17:26] LABS: Potassium 4.3 mmol/L (3.5-5.0)
[2022-05-17] MEDS ORDERED: NS 0.9% 1000 ml BAG 1,000 ML IV ONE (17:32)
[2022-05-17] MEDS ORDERED: Dextrose 50% Syringe 50 ml 25 GM/50 ML SYRINGE IV PUSH PRN (18:19)
[2022-05-17 18:20] LABS: ABS Lymphocytes 0.9 10^3/ul (1.0-4.8); ABS Neutrophils 17.6 10^3/ul (1.5-7.7); Hematocrit 37 % (35-47); Hemoglobin 12.5 g/dL (12.0-16.0); Lymphocyte % 4.5 %; Mean Corpuscular HGB Conc 34 g/dL (31-36); Mean Corpuscular Hemoglobin 30 pg (27-31); Mean Corpuscular Volume 88 fL (80-97); Mean Platelet Volume 7.1 fL (7.4-10.4); Platelet Count 422 10^3/uL (150-450); Red Blood Count 4.23 10^6 /uL (3.70-4.87); Red Cell Distribution Width 13 % (10-15); White Blood Count 19.5 10^3/uL (3.5-10.8)
[2022-05-17 18:34] LABS: INR 1.04 (0.89-1.11)
[2022-05-17] MEDS ORDERED: Albuterol HFA INHALER 8 gm MDI INH PRN (18:34)
[2022-05-17] MEDS: Latanoprost 0.005% 2.5 ml BTL BOTH EYES SCH (22:30)
[2022-05-17 22:34] LABS: Potassium 3.7 mmol/L (3.5-5.0); eGFR CKD-EPI 57.4 (>60)
[2022-05-18] MEDS ORDERED: Metoprolol Tartrate 5 mg VIAL 5 ml VIAL (1 mg/ml) IV PRN (00:09)
[2022-05-18 05:48] LABS: ABS Lymphocytes 1.6 10^3/ul (1.0-4.8); ABS Monocytes 1.1 10^3/ul (0-0.8); ABS Neutrophils 7.5 10^3/ul (1.5-7.7); Eosinophil % 0.1 %; Hematocrit 35 % (35-47); Hemoglobin 11.7 g/dL (12.0-16.0); Lymphocyte % 15.5 %; Mean Corpuscular HGB Conc 34 g/dL (31-36); Mean Corpuscular Hemoglobin 30 pg (27-31); Mean Corpuscular Volume 88 fL (80-97); Mean Platelet Volume 6.8 fL (7.4-10.4); Platelet Count 363 10^3/uL (150-450); Red Blood Count 3.94 10^6 /uL (3.70-4.87); Red Cell Distribution Width 13 % (10-15); White Blood Count 10.1 10^3/uL (3.5-10.8)
[2022-05-18 06:05] LABS: INR 1.13 (0.89-1.11)
[2022-05-18 06:54] LABS: Anion Gap 13 mmol/L (2-11); Blood Urea Nitrogen 14 mg/dL (6-24); CO2 Carbon Dioxide 24 mmol/L (22-32); Calcium 8.7 mg/dL (8.6-10.3); Chloride 94 mmol/L (101-111); Glucose 137 mg/dL (70-100); Potassium 3.5 mmol/L (3.5-5.0); Sodium 131 mmol/L (135-145); eGFR CKD-EPI 77.4 (>60)
[2022-05-18 07:44] LABS: Alcohol, S < 13 mg/dL (<13)
[2022-05-18 08:05] LABS: Urine Appearance Cloudy; Urine Bilirubin Negative (Negative); Urine Blood Negative (Negative); Urine Color Yellow; Urine Glucose 1+(50 mg/dL) (Negative); Urine Ketones Trace (Negative); Urine Nitrite Negative (Negative); Urine Protein Negative (Negative); Urine Specific Gravity 1.013 (1.002-1.030); Urine Urobilinogen Negative (Negative)
[2022-05-18 08:36] LABS: Urine Benzodiazepine Screen None Detected (None Detect); Urine Cannabinoids Screen None Detected (None Detect); Urine Opiates Screen None Detected (None Detect)
[2022-05-18] MEDS ORDERED: levETIRAcetam IV 750 MG in NS 0.9% 100 ml BAG 100 ML IVPB SCH (09:00)
[2022-05-18] MEDS ORDERED: levETIRAcetam IV 1,000 MG in NS 0.9% 100 ml BAG 100 ML IVPB SCH (09:00)
[2022-05-18] MEDS: Venlafaxine XR 75 mg PO SCH ×2 (10:28→13:34)
[2022-05-18] MEDS: Aspirin EC 81 mg TAB.EC (enteric coated) PO SCH (10:28)
[2022-05-18] MEDS: levETIRAcetam 1000MG IVPREMIX 1,000 MG/100 ML BAG IV SCH ×2 (10:28→21:44)
[2022-05-18] MEDS: Ure-Na 15 GM POWD.PACK PO SCH (10:28)
[2022-05-18] MEDS: Latanoprost 0.005% 2.5 ml BTL BOTH EYES SCH (22:37)
[2022-05-19 06:42] LABS: ABS Lymphocytes 1.4 10^3/ul (1.0-4.8); ABS Monocytes 0.8 10^3/ul (0-0.8); ABS Neutrophils 7.7 10^3/ul (1.5-7.7); Eosinophil % 0.4 %; Hematocrit 36 % (35-47); Hemoglobin 12.3 g/dL (12.0-16.0); Lymphocyte % 14.5 %; Mean Corpuscular HGB Conc 34 g/dL (31-36); Mean Corpuscular Hemoglobin 30 pg (27-31); Mean Corpuscular Volume 88 fL (80-97); Mean Platelet Volume 6.8 fL (7.4-10.4); Platelet Count 351 10^3/uL (150-450); Red Cell Distribution Width 13 % (10-15); White Blood Count 9.9 10^3/uL (3.5-10.8)
[2022-05-19 07:11] LABS: Calcium 9.2 mg/dL (8.6-10.3); Magnesium 1.5 mg/dL (1.9-2.7); Phosphorus 3.1 mg/dL (2.5-5.0); Potassium 3.5 mmol/L (3.5-5.0); eGFR CKD-EPI 98.4 (>60)
[2022-05-19 07:35] VITALS: BP 144/67
[2022-05-19] MEDS ORDERED: Magnesium Sulfate IV 3 GM in NS 0.9% 100 ml BAG 100 ML IVPB ONE (08:57)
[2022-05-19] MEDS: Venlafaxine XR 75 mg PO SCH (09:07)
[2022-05-19] MEDS: Aspirin EC 81 mg TAB.EC (enteric coated) PO SCH (09:08)
[2022-05-19] MEDS: levETIRAcetam 1000MG IVPREMIX 1,000 MG/100 ML BAG IV SCH (09:08)
[2022-05-19] MEDS: Ure-Na 15 GM POWD.PACK PO SCH (09:09)
== END 2022-05-19 13:12 | disposition home or self-care (01) | DRG 53 ==
LOC: ED 15:46 → EDHOLD 18:02 → ICU 21:06 → MEDTELE 05-18 23:22
PROVIDERS: ADMIT Internal Medicine Critical Care Medicine; ATTEND Internal Medicine Critical Care Medicine

== ENCOUNTER 2023-05-21 10:37 | Inpatient (IN) ==
[2023-05-21] MEDS ORDERED: NS 0.9% 1000 ml BAG 1,000 ML IV ONE (11:22)
[2023-05-21] MEDS ORDERED: Thiamine 100 MG/ML 2 ml VIAL 100 MG, Folic Acid IV 1 MG, Multiple Vitamin IV ADULT 10 M... IV ONE (11:23)
[2023-05-21 11:27] LABS: ABS Lymphocytes 0.4 10^3/uL (1.0-4.8); ABS Monocytes 0.6 10^3/uL (0.0-0.9); ABS Neutrophils 16.3 10^3/uL (1.5-7.6); Hematocrit 39.3 % (35-45); Lymphocyte % 2.2 %; Mean Corpuscular Hemoglobin 27.1 pg (27-33); Mean Corpuscular Hgb Conc 33.2 g/dL (31-36); Mean Corpuscular Volume 81.6 fL (80-97); Mean Platelet Volume 7.5 fL (7.5-11.2); Platelet Count 306 10^3/uL (150-450); Red Blood Count 4.82 10^6/uL (3.63-4.92); White Blood Count 17.3 10^3/uL (3.8-11.8)
[2023-05-21] MEDS ORDERED: Morphine 4 MG/ML VIAL (1 ml) IV ONE (11:43)
[2023-05-21] MEDS ORDERED: Ondansetron 4 mg VIAL 2 MG/ML 2 ml VIAL IV ONE (11:43)
[2023-05-21 11:44] LABS: ALT 14 U/L (7-52); AST 17 U/L (13-39); Albumin 3.9 g/dL (3.2-5.2); Albumin/Globulin Ratio 1.5 (1-3); Alkaline Phosphatase 96 U/L (35-149); Anion Gap 18 mmol/L (2-16); Blood Urea Nitrogen 9 mg/dL (6-24); CO2 Carbon Dioxide 17 mmol/L (22-32); Calcium 8.1 mg/dL (8.6-10.3); Chloride 89 mmol/L (101-111); Creatinine, Serum 0.71 mg/dL (0.51-0.95); Globulin 2.6 g/dL (2-4); Glucose 214 mg/dL (70-100); Lipase < 10 U/L (11.0-82.0); Magnesium 1.2 mg/dL (1.9-2.7); Potassium 3.1 mmol/L (3.5-5.0); Sodium 124 mmol/L (135-145); Total Protein 6.5 g/dL (6.4-8.9); eGFR CKD-EPI 95.5 (>60)
[2023-05-21 11:49] LABS: High Sens Troponin Baseline 24 pg/mL (<15)
[2023-05-21] MEDS ORDERED: Magnesium Sulfate IV 3 GM in NS 0.9% 100 ml BAG 100 ML IVPB ONE (11:50)
[2023-05-21] MEDS ORDERED: Iodixanol (CONTRAST) 320 MG/ML 100 ML SDV IV ONE (11:57)
[2023-05-21 12:11] LABS: Venous Bicarbonate HCO3 20.1 mmol/L (24-28)
[2023-05-21 12:26] LABS: TSH Ultra Thyroid Stim Horm 0.42 mcIU/mL (0.34-5.60)
[2023-05-21 13:08] LABS: Osmolality Serum 264 mOsm/kg (275-295)
[2023-05-21 13:21] LABS: High Sensitivity Troponin 1 Hr 22 pg/mL (<15)
[2023-05-21 13:37] LABS: Urine Appearance Clear; Urine Bilirubin Negative (Negative); Urine Blood 1+ (Negative); Urine Color Straw; Urine Glucose 3+(>=500 mg/dL) (Negative); Urine Ketones 2+ (Negative); Urine Nitrite Negative (Negative); Urine Protein 2+(100 mg/dL) (Negative); Urine Specific Gravity 1.015 (1.002-1.030); Urine Urobilinogen Negative (Negative)
[2023-05-21] MEDS ORDERED: Azithromycin 500 mg/250 ml NS 500 MG/250 ML BAG IVPB ONE (13:37)
[2023-05-21] MEDS ORDERED: cefTRIAXone 1 gm/50 mL D5W 1 GM/50 ML BAG IV ONE (13:37)
[2023-05-21 13:41] LABS: Urine Bacteria Absent (Absent); Urine Red Blood Cell Trace(0-2/hpf) (Absent); Urine White Blood Cell Trace(0-5/hpf) (Absent)
[2023-05-21 16:54] LABS: Calcium 8.2 mg/dL (8.6-10.3); Potassium 3.3 mmol/L (3.5-5.0)
[2023-05-21] MEDS: Venlafaxine XR 75 mg PO SCH (16:57)
[2023-05-21 16:59] LABS: Creatinine, Serum 0.71 mg/dL (0.51-0.95); eGFR CKD-EPI 95.5 (>60)
[2023-05-21] MEDS: Enoxaparin 40 MG/0.4 ML SYR SUBCUT SCH (17:01)
[2023-05-21] MEDS ORDERED: Potassium Chlor 20 meq TAB.ER PO ONE (17:16)
[2023-05-21] MEDS ORDERED: Dextrose 50% Syringe 50 ml 25 GM/50 ML SYRINGE IV PUSH PRN (17:27)
[2023-05-21 17:40] LABS: PCO2 Arterial 24 mmHg (35-45); PO2 Arterial 85 mmHg (80-100)
[2023-05-21] MEDS ORDERED: D5W 500 ml BAG 500 ML IV SCH (19:00)
[2023-05-21 19:04] LABS: Alcohol, S < 13 mg/dL (<13); Phosphorus 2.9 mg/dL (2.5-5.0)
[2023-05-21] MEDS ORDERED: LORazepam 2 mg VIAL 1 ml IV PUSH ONE ×2 (19:49→21:22)
[2023-05-21] MEDS ORDERED: Lorazepam PYXIS KEY SCH (21:00)
[2023-05-21] MEDS: Latanoprost 0.005% 2.5 ml BTL BOTH EYES SCH (21:10)
[2023-05-21] MEDS ORDERED: Lorazepam PYXIS KEY PRN ×2 (21:18→21:21)
[2023-05-21] MEDS ORDERED: LORazepam 2 mg VIAL 1 ml IV PUSH PRN (21:29)
[2023-05-21] MEDS ORDERED: levETIRAcetam 1000MG IVPREMIX 1,000 MG/100 ML BAG IVPB PRN (21:34)
[2023-05-21 23:41] LABS: Potassium 3.2 mmol/L (3.5-5.0)
[2023-05-21 23:46] LABS: Creatinine, Serum 0.81 mg/dL (0.51-0.95); eGFR CKD-EPI 81.5 (>60)
[2023-05-22 01:59] LABS: Urine Osmo 117 mOsm/kg (150-1150)
[2023-05-22 02:05] LABS: Urine Benzodiazepine Screen None Detected (None Detect); Urine Cannabinoids Screen None Detected (None Detect); Urine Opiates Screen Presumptive Positive (None Detect)
[2023-05-22] MEDS: LORazepam 2 mg VIAL 1 ml IV PUSH SCH ×4 (05:18→22:06)
[2023-05-22 06:31] LABS: ABS Eosinophils 0.1 10^3/uL (0.0-0.5); ABS Lymphocytes 1.4 10^3/uL (1.0-4.8); ABS Monocytes 0.8 10^3/uL (0.0-0.9); ABS Neutrophils 7.8 10^3/uL (1.5-7.6); Eosinophil % 0.8 %; Hematocrit 33.9 % (35-45); Hemoglobin 11.5 g/dL (11.5-14.3); Lymphocyte % 13.7 %; Mean Corpuscular Hgb Conc 33.8 g/dL (31-36); Mean Platelet Volume 7.6 fL (7.5-11.2); Platelet Count 303 10^3/uL (150-450); Red Blood Count 4.24 10^6/uL (3.63-4.92); Red Cell Distribution Width 15.3 % (12-17); White Blood Count 10.1 10^3/uL (3.8-11.8)
[2023-05-22 06:59] LABS: Calcium 8.2 mg/dL (8.6-10.3); Creatinine, Serum 0.79 mg/dL (0.51-0.95); Magnesium 2.1 mg/dL (1.9-2.7); Potassium 3.3 mmol/L (3.5-5.0)
[2023-05-22] MEDS ORDERED: Potassium Chlor 20 meq TAB.ER PO ONE (08:52)
[2023-05-22] MEDS: Venlafaxine XR 75 mg PO SCH (09:57)
[2023-05-22] MEDS: Fluticasone NASAL SPRAY 50MCG 16 gm SPRAY BTL BOTH NARES SCH (09:58)
[2023-05-22] MEDS ORDERED: Morphine 2 MG/ML SYRINGE IV PRN (10:58)
[2023-05-22] MEDS: Ure-Na 15 GM POWD.PACK PO SCH ×2 (11:10→22:12)
[2023-05-22] MEDS: cefTRIAXone 1 gm/50 mL D5W 1 GM/50 ML BAG IV SCH (15:00)
[2023-05-22] MEDS: DOXYcycline 100 MG in NS 0.9% 250 ml 250 ML IVPB SCH (15:10)
[2023-05-22] MEDS: Enoxaparin 40 MG/0.4 ML SYR SUBCUT SCH (17:22)
[2023-05-22 18:12] LABS: Calcium 7.9 mg/dL (8.6-10.3); Potassium 3.7 mmol/L (3.5-5.0)
[2023-05-22 18:18] LABS: Creatinine, Serum 0.7 mg/dL (0.51-0.95); eGFR CKD-EPI 97.1 (>60)
[2023-05-22 22:15] LABS: Potassium 3.6 mmol/L (3.5-5.0)
[2023-05-22 22:20] LABS: Creatinine, Serum 0.7 mg/dL (0.51-0.95); eGFR CKD-EPI 97.1 (>60)
[2023-05-22] MEDS: Latanoprost 0.005% 2.5 ml BTL BOTH EYES SCH (22:25)
[2023-05-23] MEDS: DOXYcycline 100 MG in NS 0.9% 250 ml 250 ML IVPB SCH ×2 (02:46→15:43)
[2023-05-23 06:27] LABS: ABS Eosinophils 0.1 10^3/uL (0.0-0.5); ABS Lymphocytes 1.7 10^3/uL (1.0-4.8); ABS Monocytes 0.6 10^3/uL (0.0-0.9); ABS Neutrophils 2.8 10^3/uL (1.5-7.6); Eosinophil % 2.5 %; Hematocrit 34.1 % (35-45); Hemoglobin 11.4 g/dL (11.5-14.3); Lymphocyte % 32.5 %; Mean Corpuscular Hemoglobin 27.2 pg (27-33); Mean Corpuscular Hgb Conc 33.4 g/dL (31-36); Mean Corpuscular Volume 81.5 fL (80-97); Mean Platelet Volume 7.5 fL (7.5-11.2); Nucleated Red Blood Cells % 0.1 /100 WBC (0.0-0.4); Platelet Count 280 10^3/uL (150-450); Red Blood Count 4.19 10^6/uL (3.63-4.92); Red Cell Distribution Width 15.2 % (12-17); White Blood Count 5.3 10^3/uL (3.8-11.8)
[2023-05-23 06:53] LABS: Albumin 3.3 g/dL (3.2-5.2); Albumin/Globulin Ratio 1.4 (1-3); Calcium 8.4 mg/dL (8.6-10.3); Creatinine, Serum 0.7 mg/dL (0.51-0.95); Globulin 2.4 g/dL (2-4); Potassium 3.8 mmol/L (3.5-5.0); Total Bilirubin 0.3 mg/dL (0.2-1.0); Total Protein 5.7 g/dL (6.4-8.9); eGFR CKD-EPI 97.1 (>60)
[2023-05-23] MEDS: Venlafaxine XR 75 mg PO SCH (09:20)
[2023-05-23] MEDS: Ure-Na 15 GM POWD.PACK PO SCH ×2 (09:21→20:54)
[2023-05-23] MEDS: Fluticasone NASAL SPRAY 50MCG 16 gm SPRAY BTL BOTH NARES SCH (09:22)
[2023-05-23] MEDS: cefTRIAXone 1 gm/50 mL D5W 1 GM/50 ML BAG IV SCH (14:54)
[2023-05-23] MEDS: Enoxaparin 40 MG/0.4 ML SYR SUBCUT SCH (17:28)
[2023-05-23] MEDS: Latanoprost 0.005% 2.5 ml BTL BOTH EYES SCH (20:55)
[2023-05-24] MEDS: DOXYcycline 100 MG in NS 0.9% 250 ml 250 ML IVPB SCH (02:49)
[2023-05-24 06:58] LABS: ABS Eosinophils 0.1 10^3/uL (0.0-0.5); ABS Lymphocytes 1.6 10^3/uL (1.0-4.8); ABS Monocytes 0.6 10^3/uL (0.0-0.9); ABS Neutrophils 2.7 10^3/uL (1.5-7.6); ABS Nucleated RBC 0.01 10^3/ul; Eosinophil % 2.1 %; Hematocrit 33.9 % (35-45); Hemoglobin 11.3 g/dL (11.5-14.3); Lymphocyte % 32.2 %; Mean Corpuscular Hgb Conc 33.4 g/dL (31-36); Mean Corpuscular Volume 80.6 fL (80-97); Mean Platelet Volume 7.8 fL (7.5-11.2); Nucleated Red Blood Cells % 0.1 /100 WBC (0.0-0.4); Platelet Count 317 10^3/uL (150-450); Red Cell Distribution Width 15.4 % (12-17); White Blood Count 5.1 10^3/uL (3.8-11.8)
[2023-05-24 07:04] LABS: Albumin 3.4 g/dL (3.2-5.2); Albumin/Globulin Ratio 1.5 (1-3); Calcium 8.6 mg/dL (8.6-10.3); Creatinine, Serum 0.72 mg/dL (0.51-0.95); Globulin 2.3 g/dL (2-4); Potassium 3.7 mmol/L (3.5-5.0); Total Bilirubin 0.3 mg/dL (0.2-1.0); Total Protein 5.7 g/dL (6.4-8.9); eGFR CKD-EPI 93.9 (>60)
[2023-05-24] MEDS: Venlafaxine XR 75 mg PO SCH (08:08)
[2023-05-24] MEDS: Ure-Na 15 GM POWD.PACK PO SCH (08:10)
[2023-05-24] MEDS: Fluticasone NASAL SPRAY 50MCG 16 gm SPRAY BTL BOTH NARES SCH (08:11)
[2023-05-24 13:52] VITALS: BP 142/83
== END 2023-05-24 14:00 | disposition home or self-care (01) | DRG 52 ==
LOC: ED 10:37 → EDHOLD 10:37 → MED 15:26 → SUATTDRO 05-23 08:00
PROVIDERS: ADMIT Internal Medicine; ATTEND Internal Medicine